=== PATIENT | male | born 1945 | race African-American/Black ===

== ENCOUNTER 2017-03-07 08:56 | Emergency (ER) | payer OTHER, MEDICARE ==
[2017-03-07] MEDS ORDERED: ONDANSETRON 4 MG/2 ML VIAL IVP STA (09:18)
[2017-03-07] MEDS ORDERED: SODIUM CHLORIDE 0.9% 1,000 ML IV STA ×2 (09:18)
[2017-03-07] MEDS ORDERED: FAMOTIDINE 20 MG/2 ML VIAL IV STA (09:19)
--- NOTE | 2017-03-07 09:20 | ED ---
General Adult HPI - General Chief complaint: Nausea/Vomiting/Diarrhea Stated complaint: ABDOMINAL PAIN X 4 DAYS Time Seen by Provider: 03/07/17 09:14 Source: patient, RN notes reviewed Mode of arrival: ambulatory Limitations: no limitations - History of Present Illness Initial comments: 71-year-old male who presents emergency room today with chief complaint of "possible food poisoning" 2 days. Patient does admit that he was fishing 4 days ago when he caught a fish and pulled out of the water and touch the physician then immediately grabbed meera cracker to eat. He states proximal May half an hour to an hour later started having some abdominal cramping. Patient does admit that he's felt nauseated and has had decreased appetite past 4 days. Does admit to a small amount of diarrhea. Does admit to some abdominal cramping on the right side of the abdomen. He denies any other complaints or symptoms. - Related Data Home Medications Medication Instructions Recorded Confirmed HYDROcodone/APAP 10-325MG [[place] 1 tab PO TID 03/07/17 03/07/17 10-325] Sennosides/Docusate Sodium 1 tab PO BID 03/07/17 03/07/17 [Docusate Sodium-Senna Tablet] Tamsulosin HCl [Flomax] 0.4 mg PO HS 03/07/17 03/07/17 amLODIPine [Norvasc] 5 mg PO DAILY 03/07/17 03/07/17 Previous Rx's Medication Instructions Recorded Ondansetron Odt [Zofran ODT] 4 mg PO Q8HR PRN #20 tab 03/07/17 Allergies Allergy/AdvReac Type Severity Reaction Status Date / Time No Known Allergies Allergy Verified 03/07/17 10:46 Review of Systems ROS Statement: Those systems with pertinent positive or pertinent negative responses have been documented in the HPI. ROS Other: All systems not noted in ROS Statement are negative. Past Medical History Past Medical History: Hypertension Additional Past Medical History / Comment(s): neck and back pain History of Any Multi-Drug Resistant Organisms: None Reported Past Surgical History: Joint Replacement, Orthopedic Surgery Additional Past Surgical History / Comment(s): neck Past Psychological History: No Psychological Hx Reported Smoking Status: Current every day smoker Past Alcohol Use History: None Reported Past Drug Use History: None Reported General Exam - General Exam Comments Initial Comments: General: The patient is awake and alert, in no distress, and does not appear acutely ill. Eye: Pupils are equal, round and reactive to light, extra-ocular movements are intact. No nystagmus. There is normal conjunctiva bilaterally. No signs of icterus. Ears, nose, mouth and throat: There are moist mucous membranes and no oral lesions. Neck: The neck is supple, there is no tenderness or JVD. Cardiovascular: There is a regular rate and rhythm. No murmur, rub or gallop is appreciated. Respiratory: Lungs are clear to auscultation, respirations are non-labored, breath sounds are equal. No wheezes, stridor, rales, or rhonchi. Gastrointestinal: Normal exam. Normal bowel sounds. Abdomen soft on palpation. Mild tenderness epigastric. No rebound tenderness. No guarding. No CVA tenderness. Musculoskeletal: Normal ROM, no tenderness. Strength 5/5. Sensation intact. Pulses equal bilaterally 2+. Neurological: A&O x 3. CN II-XII intact, There are no obvious motor or sensory deficits. Coordination appears grossly intact. Speech is normal. Skin: Skin is warm and dry and no rashes or lesions are noted. Psychiatric: Cooperative, appropriate mood & affect, normal judgment. Limitations: no limitations Course Vital Signs 03/07/17 09:01 Temperature 98.8 F Pulse Rate 82 Respiratory 20 Rate Blood Pressure 139/78 O2 Sat by Pulse 97 Oximetry Medical Decision Making - Medical Decision Making Patient reexamined at this time shows no signs of distress. Patient resting comfortably in the stretcher. He states he feels better and is ready to go. Patient denies any pain. Abdomen soft nontender. X-ray unremarkable. Labs been reviewed. Unable to get urine sample here the emergency room. Patient states he does not need to go. He denies any symptoms of dysuria. At this time patient will be discharged given Zofran for his symptoms. Advised follow- up family doctor return here to the emergency room if any symptoms increase or worsen or for any other concerns. - Lab Data Result diagrams: 03/07/17 09:45 03/07/17 09:45 Lab Results 03/07/17 03/07/17 Range/Units 09:45 09:45 WBC 7.2 (3.8-10.6) k/uL RBC 4.90 (4.30-5.90) m/uL Hgb 15.9 (13.0-17.5) gm/dL Hct 45.7 (39.0-53.0) % MCV 93.3 (80.0-100.0) fL MCH 32.5 (25.0-35.0) pg MCHC 34.9 (31.0-37.0) g/dL RDW 12.8 (11.5-15.5) % Plt Count 298 (150-450) k/uL Neutrophils % 54 % Lymphocytes % 35 % Monocytes % 8 % Eosinophils % 1 % Basophils % 0 % Neutrophils # 3.9 (1.3-7.7) k/uL Lymphocytes # 2.5 (1.0-4.8) k/uL Monocytes # 0.5 (0-1.0) k/uL Eosinophils # 0.1 (0-0.7) k/uL Basophils # 0.0 (0-0.2) k/uL Sodium 141 (137-145) mmol/L Potassium 3.9 (3.5-5.1) mmol/L Chloride 104 (98-107) mmol/L Carbon Dioxide 24 (22-30) mmol/L Anion Gap 13 mmol/L BUN 17 (9-20) mg/dL Creatinine 0.86 (0.66-1.25) mg/dL Est GFR (MDRD) Af Amer >60 (>60 ml/min/1.73 sqM) Est GFR (MDRD) Non-Af >60 (>60 ml/min/1.73 sqM) Glucose 111 H (74-99) mg/dL Calcium 9.4 (8.4-10.2) mg/dL Total Bilirubin 1.2 (0.2-1.3) mg/dL AST 30 (17-59) U/L ALT 35 (21-72) U/L Alkaline Phosphatase 75 (38-126) U/L Total Protein 8.0 (6.3-8.2) g/dL Albumin 4.4 (3.5-5.0) g/dL Amylase 50 (30-110) U/L Lipase 56 (23-300) U/L Disposition Clinical Impression: Nausea vomiting and diarrhea Disposition: HOME SELF-CARE Condition: Good Instructions: Acute Nausea and Vomiting (ED) Additional Instructions: Please use medication as discussed. Please follow-up with family doctor in the next 2 days of symptoms have not improved. Please return to emergency room if the symptoms increase or worsen or for any other concerns. Prescriptions: Ondansetron Odt [Zofran ODT] 4 mg PO Q8HR PRN #20 tab PRN Reason: Nausea Referrals: Jose J Brock DO [Primary Care Provider] - 1-2 days Time of Disposition: 11:14
[2017-03-07 10:02] LABS: Basophils % (A) 0 %; CH 32.5; Eosinophils # (A) 0.1 k/uL (0-0.7); Eosinophils % (A) 1 %; HCT 45.7 % (39.0-53.0); HDW 2.79; HGB 15.9 gm/dL (13.0-17.5); Luc # (Auto) 0.15; Luc % (Auto) 2; Lymphocytes # (A) 2.5 k/uL (1.0-4.8); Lymphocytes % (A) 35 %; MCH 32.5 pg (25.0-35.0); MCHC 34.9 g/dL (31.0-37.0); MCV 93.3 fL (80.0-100.0); Mean Platelet Volume 6.5; Monocytes # (A) 0.5 k/uL (0-1.0); Monocytes % (A) 8 %; Neutrophils # (A) 3.9 k/uL (1.3-7.7); Neutrophils % (A) 54 %; RDW 12.8 % (11.5-15.5); WBC 7.2 k/uL (3.8-10.6); WBC (Perox) 7.03
[2017-03-07 10:15] LABS: ALT 35 U/L (21-72); AST 30 U/L (17-59); Alkaline Phosphatase 75 U/L (38-126); Amylase 50 U/L (30-110); Anion Gap 13 mmol/L; Blood Urea Nitrogen 17 mg/dL (9-20); Calcium 9.4 mg/dL (8.4-10.2); Carbon Dioxide 24 mmol/L (22-30); Chloride 104 mmol/L (98-107); Glucose 111 mg/dL (74-99); Non-African American GFR(MDRD) >60 (>60 ml/min/1.73 sqM); Potassium 3.9 mmol/L (3.5-5.1); Sodium 141 mmol/L (137-145); Total Bilirubin 1.2 mg/dL (0.2-1.3)
--- NOTE | 2017-03-07 11:17 | XR ---
EXAMINATION TYPE: XR KUB DATE OF EXAM: 03/07/2017 10:48 AM CLINICAL HISTORY: Mid abdominal pain and nausea for 4 days. TECHNIQUE: 2 upright KUB images of the abdomen are obtained. COMPARISON: None. FINDINGS: Scattered gas is seen in non-distended stomach and small bowel loops. Gas and fecal mater ial is seen in non-distended colon. No pneumoperitoneum is identified. Multilevel spurring in the spi ne is seen. Lung bases are clear. IMPRESSION: Overall nonobstructive bowel gas pattern.
[2017-03-07 11:41] VITALS: BP 124/65; PULSE 68; RESP 18; TEMP 98.1
== END 2017-03-07 11:41 | disposition home or self-care (01) ==
LOC: EC 08:56 → SUPCPDRO 08:56 → EC 11:41
DX: R11.2 Nausea with vomiting, unspecified (principal); R19.7 Diarrhea, unspecified; I10 Essential (primary) hypertension; F17.200 Nicotine dependence, unspecified, uncomplicated; Z79.891 Long term (current) use of opiate analgesic; Z79.899 Other long term (current) drug therapy; Z87.39 Personal history of other diseases of the musculoskeletal system and connective tissue
CPT/HCPCS: 36415; 80053; 82150; 83690; 85025; 74000; 99284; 96374; 96375; 96361 ×2; J2405

== ENCOUNTER → 2017-04-01 | Outpatient (CLI) | payer OTHER ==
--- NOTE | 2017-04-01 11:12 | US ---
EXAMINATION TYPE: US liver DATE OF EXAM: 04/01/2017 COMPARISON: NONE CLINICAL HISTORY: B18.2 CHR VIRAL HEPATITIS. HEPATITIS X 4 YRS. EXAM MEASUREMENTS: Liver Length: 19.7 cm Gallbladder Wall: 0.12 cm CBD: 0.28 cm Right Kidney: 11.2 X 5.1 X 3.9 cm Pancreas: Obscured by bowel gas Liver: Diffusely coarsened echo pattern Gallbladder: wnl Evidence for sonographic Moore's sign: No CBD: wnl Right Kidney: DENSE AREA FOCUS SEEN INFERIOR POLE NO SHADOWING NOTED.l IMPRESSION: 1. There is a dense echogenic area involving the lower pole of the right kidney. This could represent a nonobstructing calculus or possibly tiny lipoma or angiomyolipoma and could be correlated with CT scan if clinically warranted. 2. Liver is somewhat coarsened echo pattern correlate for hepatocellular disease or hepatitis. Correl ate with serum hepatic studies.
== END | disposition home or self-care (01) ==
LOC: RADUSWWP 10:11
PROVIDERS: ATTEND Family Medicine
DX: B18.2 Chronic viral hepatitis C (principal)
CPT/HCPCS: 76705

== ENCOUNTER 2018-04-12 12:51 | Emergency (ER) | payer OTHER ==
[2018-04-12 13:07] VITALS: BP 121/73; PULSE 67; RESP 18; TEMP 98
[2018-04-12] MEDS ORDERED: DIPH,PERTUS(ACELL)TETVAC-LF 0.5 ML VIAL IM ONE (13:18)
--- NOTE | 2018-04-12 13:42 | ED ---
General Adult HPI - General Chief complaint: Wound/Laceration Stated complaint: Left Hand Laceration Time Seen by Provider: 04/12/18 13:14 Source: patient, family, RN notes reviewed Mode of arrival: wheelchair Limitations: no limitations - History of Present Illness Initial comments: 72-year-old male presents to the emergency department for a chief complaint of laceration to the palmar left third finger. Patient states he fell onto his left hand about one hour ago. Patient states he thinks his ring lacerated his finger. Patient denies pain in the hand besides the laceration site. Patient did not hit his head or sustain any other injuries. Patient states he can move his finger without difficulty. Patient states his tetanus is not up-to- date.Patient has no other complaints at this time including shortness of breath , chest pain, abdominal pain, nausea or vomiting, headache, or visual changes. - Related Data Home Medications Medication Instructions Recorded Confirmed HYDROcodone/APAP 10-325MG [[place] 1 tab PO TID 03/07/17 04/12/18 10-325] Sennosides/Docusate Sodium 1 tab PO BID 03/07/17 04/12/18 [Docusate Sodium-Senna Tablet] Tamsulosin HCl [Flomax] 0.4 mg PO HS 03/07/17 04/12/18 amLODIPine [Norvasc] 5 mg PO DAILY 03/07/17 04/12/18 Previous Rx's Medication Instructions Recorded Ondansetron Odt [Zofran ODT] 4 mg PO Q8HR PRN #20 tab 03/07/17 Allergies Allergy/AdvReac Type Severity Reaction Status Date / Time No Known Allergies Allergy Verified 04/12/18 13:07 Review of Systems ROS Statement: Those systems with pertinent positive or pertinent negative responses have been documented in the HPI. ROS Other: All systems not noted in ROS Statement are negative. Past Medical History Past Medical History: Hypertension Additional Past Medical History / Comment(s): neck and back pain History of Any Multi-Drug Resistant Organisms: None Reported Past Surgical History: Joint Replacement, Orthopedic Surgery Additional Past Surgical History / Comment(s): neck Past Psychological History: No Psychological Hx Reported Smoking Status: Current every day smoker Past Alcohol Use History: None Reported Past Drug Use History: None Reported General Exam Limitations: no limitations General appearance: alert, in no apparent distress Head exam: Present: atraumatic, normocephalic, normal inspection Eye exam: Present: normal appearance ENT exam: Present: normal exam, mucous membranes moist, normal external ear exam Neck exam: Present: normal inspection, full ROM. Absent: tenderness, meningismus, lymphadenopathy Respiratory exam: Present: normal lung sounds bilaterally. Absent: respiratory distress, wheezes, rales, rhonchi, stridor Cardiovascular Exam: Present: regular rate, normal rhythm, normal heart sounds. Absent: systolic murmur, diastolic murmur, rubs, gallop, clicks Extremities exam: Present: full ROM (Full range of motion of the left hand including flexion and extension in the MCP, PIP, DIP joints of the left third digit.), tenderness (Tenderness around laceration site. There is some tenderness in the left third finger as well. No hand or scaphoid tenderness.), normal capillary refill (Capillary refill less than 2 seconds and radial pulse 2 + in the left upper extremity), joint swelling (Mild swelling to the proximal phalanx of the left third digit), other (There is a 1.5 cm laceration to the palmar aspect of the proximal phalanx left third finger. No foreign bodies. All deep structures intact. No signs of infection or spreading redness.) Course Vital Signs 04/12/18 13:05 Temperature 98 F Pulse Rate 67 Respiratory 18 Rate Blood Pressure 121/73 O2 Sat by Pulse 97 Oximetry Procedures - Procedures Initial comment: Body area: Palmar aspect proximal phalanx of left third finger Laceration length: 1.5 cm Foreign bodies: no foreign bodies Tendon involvement: none Nerve involvement: none Vascular damage: no Anesthesia: local infiltration Local anesthetic: 2 mL 1% lidocaine Preparation: Patient was prepped and draped in the usual sterile fashion. Irrigation solution: Sterile water, iodine Irrigation method:sterile water jet lavage Skin closure: 5-0 Ethilon using sterile technique Number of sutures: 5 Technique: interupted Dressing: antibiotic ointment/ gauze Patient tolerance: Patient tolerated the procedure well with no immediate complications. Medical Decision Making - Medical Decision Making 72-year-old male presents to the emergency department for a chief complaint of laceration to the left third finger one hour ago. Patient fell and thinks he cut it with his ring. Ring is currently removed and there are no rings on the left hand. No other injuries were sustained. Tetanus was in the emergency department. There is mild swelling of the proximal phalanx of the left third digit. Laceration appears about 1.5 cm. No foreign bodies. Patient has full range of motion of the third digit. No tenderness in the hand or wrist including scaphoid. X-ray shows no acute fractures, dislocations, or foreign bodies. Laceration was cleaned thoroughly and sutured with 5 sutures. Patient will return in 7-10 days to have sutures removed. He was educated not to submerge the hand for 24-48 hours. He was educated on return precautions including those for infection. He will follow up with primary care in 1-2 days. Disposition Clinical Impression: Laceration Disposition: HOME SELF-CARE Condition: Good Instructions: Care For Your Stitches (ED), Laceration (ED) Additional Instructions: Motrin or Tylenol for pain. Please monitor for signs of infection such as spreading redness, streaking redness, drainage or fever and return if these occur. Return in 7-10 days to have stitches removed. Follow up with primary care in 1-2 days. Is patient prescribed a controlled substance at d/c from ED?: No Referrals: [facility]inic [Primary Care Provider] - 1-2 days Time of Disposition: 14:29
--- NOTE | 2018-04-12 14:05 | XR ---
EXAMINATION TYPE: XR hand complete LT DATE OF EXAM: 04/12/2018 COMPARISON: NONE HISTORY: 72-year-old male with fall, middle digit pain and swelling TECHNIQUE: 3 views FINDINGS: Mild scattered osteoarthritic spurring at the DIP joints and at the base of thumb. No acute fracture, subluxation, or dislocation is seen. IMPRESSION: Scattered mild osteoarthritic changes. No acute osseous abnormality seen.
== END 2018-04-12 14:36 | disposition home or self-care (01) ==
LOC: EC 12:51
DX: S61.213A Laceration without foreign body of left middle finger without damage to nail, initial encounter (principal); I10 Essential (primary) hypertension; F17.200 Nicotine dependence, unspecified, uncomplicated; Z23 Encounter for immunization; Z79.891 Long term (current) use of opiate analgesic; Z79.899 Other long term (current) drug therapy; W01.0XXA Fall on same level from slipping, tripping and stumbling without subsequent striking against object, initial encounter; Y92.003 Bedroom of unspecified non-institutional (private) residence as the place of occurrence of the external cause
CPT/HCPCS: 12001; 90471; 90715; 99283

== ENCOUNTER 2018-04-17 13:13 | Inpatient (IN) | payer MEDICARE, OTHER ==
--- NOTE | 2018-04-17 13:22 | ED ---
General Adult HPI - General Chief complaint: Weakness Stated complaint: Left Sided Weakness Time Seen by Provider: 04/17/18 13:14 Source: patient, EMS, RN notes reviewed, old records reviewed Mode of arrival: EMS Limitations: physical limitation - History of Present Illness Initial comments: This is a 72-year-old male the ER for evaluation. Patient does say for evaluation regarding significant left-sided weakness. Inability to ambulate. History of spinal surgery history of neck surgery. History of degenerative disc disease - Related Data Home Medications Medication Instructions Recorded Confirmed HYDROcodone/APAP 10-325MG [[place] 1 tab PO TID 03/07/17 04/17/18 10-325] Sennosides/Docusate Sodium 1 tab PO BID 03/07/17 04/17/18 [Docusate Sodium-Senna Tablet] Tamsulosin HCl [Flomax] 0.4 mg PO HS 03/07/17 04/17/18 amLODIPine [Norvasc] 5 mg PO DAILY 03/07/17 04/17/18 Allergies Allergy/AdvReac Type Severity Reaction Status Date / Time No Known Allergies Allergy Verified 04/17/18 13:27 Review of Systems ROS Statement: Those systems with pertinent positive or pertinent negative responses have been documented in the HPI. ROS Other: All systems not noted in ROS Statement are negative. Past Medical History Past Medical History: Hypertension Additional Past Medical History / Comment(s): neck and back pain History of Any Multi-Drug Resistant Organisms: None Reported Past Surgical History: Joint Replacement, Orthopedic Surgery Additional Past Surgical History / Comment(s): neck Past Psychological History: No Psychological Hx Reported Smoking Status: Current every day smoker Past Alcohol Use History: None Reported Past Drug Use History: None Reported General Exam - General Exam Comments Initial Comments: Significant left-sided weakness and left-sided foot drop Limitations: physical limitation General appearance: alert, in no apparent distress Head exam: Present: atraumatic, normocephalic, normal inspection Eye exam: Present: normal appearance, PERRL, EOMI. Absent: scleral icterus, conjunctival injection, periorbital swelling ENT exam: Present: normal exam, mucous membranes moist Neck exam: Present: normal inspection. Absent: tenderness, meningismus, lymphadenopathy Respiratory exam: Present: normal lung sounds bilaterally. Absent: respiratory distress, wheezes, rales, rhonchi, stridor Cardiovascular Exam: Present: regular rate, normal rhythm, normal heart sounds. Absent: systolic murmur, diastolic murmur, rubs, gallop, clicks GI/Abdominal exam: Present: soft, normal bowel sounds. Absent: distended, tenderness, guarding, rebound, rigid Extremities exam: Present: normal inspection, full ROM, normal capillary refill. Absent: tenderness, pedal edema, joint swelling, calf tenderness Back exam: Present: normal inspection Neurological exam: Present: alert, oriented X3, CN II-XII intact Psychiatric exam: Present: normal affect, normal mood Skin exam: Present: warm, dry, intact, normal color. Absent: rash Course Vital Signs 04/17/18 13:14 Temperature 98.4 F Pulse Rate 65 Respiratory 16 Rate Blood Pressure 134/69 O2 Sat by Pulse 98 Oximetry - Reevaluation(s) Reevaluation #1: 04/17/18 14:16 patient w inability to ambulate Medical Decision Making - Medical Decision Making 72 male the ER for evaluation. Patient with significant weakness, patient is scheduled for outpatient MRI, Anusha states patient is continues to keep getting weaker, now decreased ability to amylase secondary significant left-sided. History of degenerative disc disease. We'll observe patient obtain MRI Disposition Clinical Impression: Left foot drop Disposition: ADMITTED IP TO THIS HOSP Condition: Fair Is patient prescribed a controlled substance at d/c from ED?: No Referrals: [facility],Clinic [Primary Care Provider] - 1-2 days
[2018-04-17] MEDS ORDERED: SODIUM CHLORIDE 0.9% 1,000 ML IV STA (13:49)
[2018-04-17 14:09] LABS: Basophils % (A) 1 %; Eosinophils # (A) 0.3 k/uL (0-0.7); Eosinophils % (A) 5 %; HCT 43.7 % (39.0-53.0); HGB 14.6 gm/dL (13.0-17.5); Lymphocytes # (A) 2.4 k/uL (1.0-4.8); Lymphocytes % (A) 36 %; MCH 31.2 pg (25.0-35.0); MCHC 33.4 g/dL (31.0-37.0); MCV 93.3 fL (80.0-100.0); Mean Platelet Volume 6.3; Monocytes # (A) 0.4 k/uL (0-1.0); Monocytes % (A) 5 %; Neutrophils # (A) 3.5 k/uL (1.3-7.7); Neutrophils % (A) 52 %; Platelet Count 318 k/uL (150-450); RBC 4.68 m/uL (4.30-5.90); RDW 12.7 % (11.5-15.5); WBC 6.8 k/uL (3.8-10.6)
[2018-04-17 14:20] LABS: ALT 32 U/L (21-72); AST 25 U/L (17-59); Alkaline Phosphatase 70 U/L (38-126); Anion Gap 11 mmol/L; Blood Urea Nitrogen 12 mg/dL (9-20); Calcium 9.5 mg/dL (8.4-10.2); Carbon Dioxide 26 mmol/L (22-30); Chloride 104 mmol/L (98-107); Glucose 118 mg/dL (74-99); Phosphorus 3.9 mg/dL (2.5-4.5); Potassium 4.1 mmol/L (3.5-5.1); Sodium 141 mmol/L (137-145); Total Bilirubin 0.6 mg/dL (0.2-1.3); Total Protein 6.8 g/dL (6.3-8.2)
[2018-04-17 14:24] LABS: INR 1.1 (<1.2); Partial Thromboplastin Time 25.1 sec (22.0-30.0); Prothrombin Time 10.6 sec (9.0-12.0)
[2018-04-17 14:29] LABS: Creatine Kinase 37 U/L (55-170)
[2018-04-17 14:42] LABS: Creatine Kinase MB <0.2 ng/mL (0.0-2.4); Troponin I <0.012 ng/mL (0.000-0.034)
[2018-04-17 16:39] LABS: Appearance,Urine Clear (Clear); Bilirubin,Urine Negative (Negative); Blood,Urine Negative (Negative); Color,Urine Yellow; Glucose,Urine (UA) Negative (Negative); Ketones,Urine Negative (Negative); Leukocyte Esterase,Urine Negative (Negative); Nitrite,Urine Negative (Negative); PH, Urine 5.5 (5.0-8.0); Protein,Urine Trace (Negative); Specific Gravity,Urine 1.023 (1.001-1.035)
--- NOTE | 2018-04-17 17:51 | P.HPIM ---
History of Present Illness This is a pleasant 72 years old male with past medical history of hypertension, neck and back pain, Joint replacement, history of cervical stenosis S/P orthopedic surgery, current every day smoker. He presents because of progressive weakness of his left leg and left upper extremity over 3 weeks duration not associated with headache. No slurred speech no blurry vision. No urine or bowel incontinence. No headache. No neck pain or back pain. Patient went to his physicians recommended MRI of the lower back and send him for orthopedic referral. However patient didn't have a chance to do the MRI and he kept getting worse gradually. As per at bedside 3 weeks ago noticed that her to stop doing his usual daily activity. 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 Patient and reports he fell twice about 1.5 and one week ago. One time once he was going upstairs and the second time he tripped in his bedroom. Over the last few weeks he starts using a cane later on a walker and later on the wheelchair on the day of admission. Patient uses Norvasc at home for blood pressure, and [place] for chronic neck and back pain however for long time pain is controlled and he is on [place] 3 times a day. Today as well as over the last 3 weeks patient denies any neck or back pain. No urine or bowel incontinence. No sensory level. No chest pain. No dyspnea. No palpitation. No change in urine or bowel habits. No fever . In the ED his blood test of CBC, BMP, and coagulation studies were unremarkable. His UA was unremarkable. EKG shows sinus bradycardia at 55 BPM, QTC 401. No significant ST-T changes. With first- degree AV block. Patient is not on beta rod Review of Systems CONSTITUTIONAL: No fever, no malaise, no fatigue. HEENT: No recent visual problems or hearing problems. Denied any sore throat. CARDIOVASCULAR: No orthopnea, PND, no palpitations, no syncope. PULMONARY: No shortness of breath, no cough, no hemoptysis. GASTROINTESTINAL: No diarrhea, no nausea, no vomiting, no abdominal pain. Normoactive bowel sounds. NEUROLOGICAL: No headaches,, no numbness. No suspicion. No blurred vision HEMATOLOGICAL: Denies any bleeding or petechiae. GENITOURINARY: Denies any burning micturition, frequency, or urgency. MUSCULOSKELETAL/RHEUMATOLOGICAL: Denies any joint pain, swelling, or any muscle pain. ENDOCRINE: Denies any polyuria or polydipsia. Past Medical History Past Medical History: Hypertension Additional Past Medical History / Comment(s): neck and back pain History of Any Multi-Drug Resistant Organisms: None Reported Past Surgical History: Joint Replacement, Orthopedic Surgery Additional Past Surgical History / Comment(s): neck Past Psychological History: No Psychological Hx Reported Smoking Status: Current every day smoker Past Alcohol Use History: None Reported Past Drug Use History: None Reported Medications and Allergies Home Medications Medication Instructions Recorded Confirmed Type HYDROcodone/APAP 10-325MG [[place] 1 tab PO TID 03/07/17 04/17/18 History 10-325] Sennosides/Docusate Sodium 1 tab PO BID 03/07/17 04/17/18 History [Docusate Sodium-Senna Tablet] Tamsulosin HCl [Flomax] 0.4 mg PO HS 03/07/17 04/17/18 History amLODIPine [Norvasc] 5 mg PO DAILY 03/07/17 04/17/18 History Allergies Allergy/AdvReac Type Severity Reaction Status Date / Time No Known Allergies Allergy Verified 04/17/18 13:27 Physical Exam Vitals: Vital Signs Temp Pulse Resp BP Pulse Ox 04/17/18 15:35 74 16 136/79 98 04/17/18 14:31 60 16 134/69 97 04/17/18 13:14 98.4 F 65 16 134/69 98 Intake and Output 04/17/18 04/17/18 04/17/18 06:59 14:59 22:59 Other: Weight 98.883 kg GENERAL: The patient is alert and oriented x3, not in any acute distress. Well developed, well nourished. HEENT: Pupils are round and equally reacting to light. EOMI. No scleral icterus. No conjunctival pallor. Normocephalic, atraumatic. No pharyngeal erythema. No thyromegaly. CARDIOVASCULAR: S1 and S2 present. No murmurs, rubs, or gallops. PULMONARY: Chest is clear to auscultation, no wheezing or crackles. ABDOMEN: Soft, nontender, nondistended, normoactive bowel sounds. No palpable organomegaly. MUSCULOSKELETAL: No joint swelling or deformity. EXTREMITIES: No cyanosis, clubbing, or pedal edema. NEUROLOGICAL: Cranial nerves are grossly intact. Weakness of the left upper extremity and left lower extremity.week left hand telemarketer. can bend his left leg half-way compared to the right side. Absent meningeal signs. Pupils are equal and reactive to light SKIN: No rashes. Results CBC & Chem 7: 04/17/18 13:49 04/17/18 13:49 Labs: Abnormal Lab Results - Last 24 Hours (Table) 04/17/18 04/17/18 04/17/18 Range/Units 13:49 13:49 16:22 Glucose 118 H (74-99) mg/dL Total Creatine Kinase 37 L (55-170) U/L Urine Protein Trace H (Negative) Assessment and Plan Assessment: -Progressive weakness of the left upper and lower extremity. Possible stroke -Sinus bradycardia, with first-degree AV block on EKG -Hypertension -History of chronic neck and back pain status post neck surgery about 5 years ago. Currently is pain-free Plan: This is a 72 -[place] gentleman from the [facility], who presents because of 3 weeks progressive left upper and lower extremity weakness. We'll continue with the same treatment. We'll continue with symptomatic treatment. We'll do a CAT scan of the head. If is negative we will consider starting aspirin. Continue with neuro check. Call neurologist consult. Admit him to telemetry. Check lipid panel and hemoglobin A1c. We'll check an echo and ask cardiology consultation too. Patient is counseled about quit smoking and he agrees. Continue with nicotine patch. GI and DVT prophylaxis. Consult physical therapy and occupational therapy. Further recommendation based on the clinical course and the outcome of the workup. Prognosis is guarded Time with Patient: Greater than 30
--- NOTE | 2018-04-17 18:11 | CT ---
EXAMINATION TYPE: CT brain alan gomez DATE OF EXAM: 04/17/2018 COMPARISON: NONE HISTORY: Left leg and arm numbness x3 weeks. CT DLP: 1510 mGycm Automated exposure control for dose reduction was used. TECHNIQUE: CT scan of the head and cervical spine are performed without contrast. FINDINGS: There is a 5 cm area of poorly marginated edema in the right parietal lobe palomino and white matter. There is also a second focus of edema that measures 5 x 3 cm in the right thalamus and inter nal capsule. There is 15 mm area of increased density at the anterior aspect of the third ventricle c onsistent with a mass. There is no hydrocephalus. There is 4 cm area of white matter and palomino matter hypodensity in the left cerebellar hemisphere consistent with edema. There is no evidence of intracra nial hemorrhage. The calvarium is intact. There is anterior and posterior fusion surgery in the cervical spine at C3-4. Vertebra have normal al ignment. There is narrowing of disc spaces from C3 to T1. There is no compression fracture. Skull bas e is intact. I see no focal bony destructive process. There is spurring of the endplates. There is en dplate spur formation with some relative spinal stenosis from C4 to C6. Impression Spondylotic changes in the cervical spine. No fracture. Multiple areas of cerebral edema. Mass in the anterior right thalamus. Findings are consistent with m etastatic disease.
[2018-04-17 20:20] LABS: INR 1.1 (<1.2); Prothrombin Time 10.8 sec (9.0-12.0)
[2018-04-17] MEDS: TAMSULOSIN 0.4 MG CAP.ER.24H PO SCH (21:52)
[2018-04-17] MEDS: HYDROcodone/APAP 10-325MG 1 EACH TAB PO PRN (21:52)
[2018-04-18 07:07] LABS: INR 1.1 (<1.2); Partial Thromboplastin Time 24.9 sec (22.0-30.0); Prothrombin Time 10.6 sec (9.0-12.0)
[2018-04-18 07:15] LABS: ALT 34 U/L (21-72); AST 20 U/L (17-59); Albumin 3.5 g/dL (3.5-5.0); Alkaline Phosphatase 70 U/L (38-126); Anion Gap 10 mmol/L; Blood Urea Nitrogen 11 mg/dL (9-20); Carbon Dioxide 28 mmol/L (22-30); Chloride 100 mmol/L (98-107); Cholesterol 130 mg/dL (<200); Glucose 105 mg/dL (74-99); HDL Cholesterol 24 mg/dL (40-60); LDL Cholesterol,Calculated 82 mg/dL (0-99); Potassium 4.1 mmol/L (3.5-5.1); Sodium 138 mmol/L (137-145); Total Bilirubin 0.4 mg/dL (0.2-1.3); Total Protein 6.1 g/dL (6.3-8.2); Triglycerides 122 mg/dL (<150)
[2018-04-18] MEDS ORDERED: amLODIPine 5 MG TAB PO SCH (09:00)
[2018-04-18] MEDS: SENNOSIDES-DOCUSATE SODIUM 1 EACH TAB PO SCH ×2 (09:08→21:26)
[2018-04-18] MEDS: HYDROcodone/APAP 10-325MG 1 EACH TAB PO PRN (09:12)
--- NOTE | 2018-04-18 10:58 | CONS ---
CONSULTATION CHIEF COMPLAINT: Bradycardia. This is a 72-year-old gentleman with history of hypertension and history of cervical stenosis status post surgery, chronic neck and back pain, who presented to hospital with progressive weakness of the left leg and left upper extremity of about 3 weeks duration. The left leg weakness has worsened more over the last 1 to 2 days, hence he comes in. Cardiology has been consulted because of bradycardia. His EKG shows sinus bradycardia without significant ST-T wave changes. PAST MEDICAL HISTORY: Significant for hypertension. MEDICATIONS: Medications at home include Norvasc 5 mg daily, Flomax, [place]. ALLERGIES: There are no known drug allergies. FAMILY HISTORY: Negative for premature coronary artery disease. SOCIAL HISTORY: Significant for smoking. There is no history of EtOH abuse or drug abuse. REVIEW OF SYSTEMS: HEENT is significant for neck pain. CARDIAC: As described above. RESPIRATORY: Negative. GI: Negative. GENITOURINARY: Negative. ALLERGY/IMMUNOLOGY: Negative. SKIN: Negative. MUSCULOSKELETAL: Significant for arthritis. PSYCHOSOCIAL: Negative. ENDOCRINE: Negative. HEMATOLOGICAL: Negative. DERM: Negative. CONSTITUTIONAL: Negative. ONCOLOGICAL: Negative. Rest of the systems review is not relevant. PHYSICAL EXAMINATION: On exam, patient is comfortable at rest. Heart rate is 60 beats per minute. Blood pressure is 140/60, respiratory rate is 18, O2 sat is 95% on room air. There is no jugular venous distention. Carotid upstroke is normal. There is no bruit. Chest exam reveals good air entry bilaterally. Heart exam reveals first and second heart sounds. No gallop. Abdomen is soft. Examination of extremities did not reveal any edema. Peripheral pulses are felt. LABS: Labs show an LDL cholesterol of 82. Troponin is negative. EKG shows sinus bradycardia. Echocardiogram has been done and results are pending. CT scan of the head and cervical spine shows cerebral edema with mass in the right anterior thalamic region consistent with metastatic disease. CONCLUSIONS: 1. Asymptomatic sinus bradycardia could be physiological or could be related to the cerebral edema. 2. Hypertension. PLAN: The patient does not have symptomatic bradycardia. Cerebral edema management as per primary. We will review the echo results, but we really do not have anything further to offer at this time. We are going to see the patient on an as-needed basis. Thank you for allowing us to participate in the care of this pleasant gentleman. MMODL / IJN: [id number] /
--- NOTE | 2018-04-18 11:48 | ECHOF ---
Referral Reason:Bradycardia, stroke MEASUREMENTS -------- HEIGHT: 180.3 cm WEIGHT: 99.3 kg BP: 138/77 IVSd: 1.1 cm (0.6 - 1.1) LVIDd: 4.5 cm (3.9 - 5.3) LVPWd: 1.2 cm (0.6 - 1.1) IVSs: 1.7 cm LVIDs: 3.1 cm LVPWs: 1.6 cm Ao Diam: 3.5 cm (2.0 - 3.7) AV Cusp: 2.3 cm (1.5 - 2.6) LA Diam: 3.5 cm (2.7 - 3.8) MV EXCURSION: 14.577 mm (> 18.000) MV EF SLOPE: 51 mm/s (70 - 150) EPSS: 0.9 cm MV E Daniel: 0.59 m/s MV DecT: 367 ms MV A Daniel: 0.78 m/s MV E/A Ratio: 0.75 AR PHT: 340 ms RAP: 5.00 mmHg RVSP: 8.53 mmHg FINDINGS -------- Sinus rhythm. This was a technically good study. The left ventricular size is normal. There is mild concentric left ventricular hypertrophy. Overa ll left ventricular systolic function is normal with, an EF between 55 - 60 %. The right ventricle is normal in size and function. The left atrium is normal in size. The right atrium is normal in size. The aortic valve is trileaflet, and appears structurally normal. No aortic stenosis or regurgitation. Trace amount of aortic regurgitation. The mitral valve leaflets are mildly thickened. There is trace mitral regurgitation. Trace tricuspid regurgitation present. The right ventricular systolic pressure, as measured by Dopp ler, is 8.53mmHg. Pulmonic valve appears structurally normal. The aortic root size is normal. Normal inferior vena cava with normal inspiratory collapse consistent with estimated right atrial pre ssure of 5 mmHg. The pericardium is normal. CONCLUSIONS -------- 1. Sinus rhythm. 2. This was a technically good study. 3. The left ventricular size is normal. 4. There is mild concentric left ventricular hypertrophy. 5. Overall left ventricular systolic function is normal with, an EF between 55 - 60 %. 6. The right ventricle is normal in size and function. 7. The left atrium is normal in size. 8. The right atrium is normal in size. 9. The aortic valve is trileaflet, and appears structurally normal. No aortic stenosis or regurgitati on. 10. Trace amount of aortic regurgitation. 11. The mitral valve leaflets are mildly thickened. 12. There is trace mitral regurgitation. 13. Trace tricuspid regurgitation present. 14. The right ventricular systolic pressure, as measured by Doppler, is 8.53mmHg. 15. Pulmonic valve appears structurally normal. 16. The aortic root size is normal. 17. Normal inferior vena cava with normal inspiratory collapse consistent with estimated right atrial pressure of 5 mmHg. 18. The pericardium is normal. TOBACCO WRAPPING MACHINE TENDER: Shasta Issa RDCS
--- NOTE | 2018-04-18 13:36 | P.PN ---
Progress Note - Text Progress Note Date: 04/18/18 This is an addendum to the cardiology consultation dictated. Patient did have an echocardiogram with Doppler study performed today which revealed a normal ejection fraction, 55-60%. DNP note has been reviewed, I agree with a documented findings and plan of care. Patient was seen and examined.
[2018-04-18] MEDS ORDERED: NICOTINE 14MG/24HR PATCH TRANSDERM SCH (16:00)
[2018-04-18] MEDS ORDERED: DEXAMETHASONE SOD PHOSPHATE 10 MG/ML 1 ML VIAL IV SCH (16:00)
[2018-04-18 16:32] LABS: Hemoglobin A1C 5.1 % (4.0-6.0)
--- NOTE | 2018-04-18 16:37 | P.CONS ---
History of Present Illness - Reason for Consult Consult date: 04/18/18 Possible brain metastasis - History of Present Illness The patient is a 72-year-old -[place] male, apparently in good health at baseline. Over the past 3 weeks, he had noted some increasing weakness in his left upper and lower extremity. The onset was fairly gradual. There was no associated headache, visual complaints, difficulty in speaking or swallowing. His noted that the patient had become slowly less active. He also had 2-3 falls. He started using a cane and subsequently progressed to needing a walker and then a wheelchair because of progressive weakness. He was therefore brought into the emergency room. He had a computed tomography scan of the brain done without contrast, that showed evidence of a 4 cm area of edema in the right parietal area, at least 2 other areas of edema on the right, including a 5 x 3 cm area in the right internal capsule and thalamus and a 1.5 cm area involving the third ventricle, as well as a 4 cm area of edema in the left cerebellum. The clinical picture was highly suspicious for underlying mass lesions causing vasogenic edema. The patient was therefore admitted, and consult placed for further evaluation and recommendations. He denies any prior history of malignancy. There is a long-standing history of smoking. Review of Systems Constitutional: Reports weakness Eyes: denies blurred vision, denies pain Ears: deny: decreased hearing, ear discharge, earache, tinnitus Ears, nose, mouth and throat: Denies headache, Denies sore throat Cardiovascular: Denies chest pain, Denies shortness of breath Respiratory: Denies cough Gastrointestinal: Denies abdominal pain, Denies diarrhea, Denies nausea, Denies vomiting Genitourinary: Reports as per HPI (No specific complaints) Musculoskeletal: Reports muscle weakness Integumentary: Denies pruritus, Denies rash Neurological: Reports balance difficulties, Reports motor disturbance (Left upper and lower extremity weakness) Psychiatric: Denies anxiety, Denies depression Endocrine: Denies fatigue, Denies weight change Hematologic/Lymphatic: Reports as per HPI Past Medical History Past Medical History: Hypertension Additional Past Medical History / Comment(s): neck and back pain History of Any Multi-Drug Resistant Organisms: None Reported Past Surgical History: Joint Replacement, Orthopedic Surgery Additional Past Surgical History / Comment(s): neck Past Anesthesia/Blood Transfusion Reactions: No Reported Reaction Smoking Status: Current every day smoker - Past Family History Mother Additional Family Medical History / Comment(s): etoh Brother(s) Additional Family Medical History / Comment(s): etoh Father History Unknown: Yes Medications and Allergies Home Medications Medication Instructions Recorded Confirmed Type HYDROcodone/APAP 10-325MG [[place] 1 tab PO TID 03/07/17 04/17/18 History 10-325] Sennosides/Docusate Sodium 1 tab PO BID 03/07/17 04/17/18 History [Docusate Sodium-Senna Tablet] Tamsulosin HCl [Flomax] 0.4 mg PO HS 03/07/17 04/17/18 History amLODIPine [Norvasc] 5 mg PO DAILY 03/07/17 04/17/18 History Allergies Allergy/AdvReac Type Severity Reaction Status Date / Time No Known Allergies Allergy Verified 04/17/18 13:27 Physical Exam Vitals: Vital Signs Temp Pulse Pulse Resp BP BP Pulse Ox 04/18/18 11:30 97.9 F 56 L 18 131/71 97 04/18/18 08:49 95 04/18/18 08:00 97.5 F L 63 18 141/65 97 04/18/18 04:10 98.8 F 52 L 18 138/77 95 04/18/18 00:10 98.3 F 57 L 18 164/82 96 04/17/18 20:10 98.4 F 66 17 171/82 98 04/17/18 19:17 97.9 F 78 16 142/78 98 04/17/18 17:55 98.7 F 54 L 47 H 149/72 100 Intake and Output 04/18/18 04/18/18 04/18/18 06:59 14:59 22:59 Intake Total 473 Output Total 400 300 Balance -400 173 Intake: Oral 473 Output: Urine 400 300 Other: Voiding Method Urinal Urinal # Voids 3 Weight 99.5 kg - Constitutional General appearance: no acute distress - EENT Eyes: EOMI, PERRLA ENT: hearing grossly normal, normal oropharynx - Neck Neck: no lymphadenopathy Thyroid: bilateral: normal size - Respiratory Respiratory: bilateral: CTA - Cardiovascular Rhythm: regular Heart sounds: normal: S1, S2 - Gastrointestinal General gastrointestinal: normal bowel sounds, soft - Integumentary Integumentary: normal - Neurologic Neurologic: CNII-XII intact, focal deficits (Left upper extremity strength about 3/5, left lower extremity strength 3/5 proximal and distal) - Musculoskeletal Musculoskeletal: left sided weakness - Psychiatric Psychiatric: A&O x's 3, appropriate affect Results CBC & Chem 7: 04/17/18 13:49 04/18/18 05:26 Labs: Abnormal Lab Results - Last 24 Hours (Table) 04/17/18 04/18/18 Range/Units 16:22 05:26 Glucose 105 H (74-99) mg/dL Total Protein 6.1 L (6.3-8.2) g/dL HDL Cholesterol 24 L (40-60) mg/dL Urine Protein Trace H (Negative) Microbiology - Last 24 Hours (Table) 04/17/18 16:22 Urine Culture - Preliminary Urine,Voided CT Scan - head: report reviewed, image reviewed Assessment and Plan (1) Brain mass Narrative/Plan: The patient's computed tomography scan was done without contrast and shows areas of significant edema in multiple locations, as noted in the HPI. Images were personally reviewed. The clinical picture is highly suspicious for a mass lesion causing vasogenic edema leading to his neurologic deficit. The patient has been seen by neurology. He needs an MRI with contrast, that has been ordered with results pending at this time. The clinical picture, possible differentials, and implications were discussed in detail with him and his . As ordered above, he was informed that mass lesion of the brain or the primary differential at this point. Assuming that the MRI confirms the same, metastatic malignancy to the brain would be the primary concern. Computed tomography scan of the chest abdomen and pelvis will be ordered to check for possible primary sites as well as targets for biopsy if appropriate In the meantime the patient be started on high dose IV Decadron. As he has large areas of edema involving the base of the brain, I will also give him a 2 doses of mannitol reduce risk of herniation. Current Visit: Yes Status: Acute Code(s): G93.9 - DISORDER OF BRAIN, UNSPECIFIED SNOMED Code(s): 736921116 Plan: The case, and recommendations were discussed in detail with the admitting service.
--- NOTE | 2018-04-18 17:40 | P.PN ---
Subjective Progress Note Date: 04/18/18 Principal diagnosis: Possible brain metastases 72-year-old -Leb[place] male, apparently in good health at baseline. Over the past 3 weeks, he had noted some increasing weakness in his left upper and lower extremity. The onset was fairly gradual. There was no associated headache, visual complaints, difficulty in speaking or swallowing. His noted that the patient had become slowly less active. He also had 2-3 falls. He started using a cane and subsequently progressed to needing a walker and then a wheelchair because of progressive weakness. He was therefore brought into the emergency room. He had a computed tomography scan of the brain done without contrast, that showed evidence of a 4 cm area of edema in the right parietal area, at least 2 other areas of edema on the right, including a 5 x 3 cm area in the right internal capsule and thalamus and a 1.5 cm area involving the third ventricle, as well as a 4 cm area of edema in the left cerebellum. The clinical picture was highly suspicious for underlying mass lesions causing vasogenic edema. Objective - Vital Signs Vital signs: Vital Signs Temp 97.9 F 04/18/18 11:30 Pulse 56 L 04/18/18 11:30 Resp 18 04/18/18 11:30 BP 131/71 04/18/18 11:30 Pulse Ox 97 04/18/18 11:30 Intake & Output 04/17/18 04/18/18 04/18/18 18:59 06:59 18:59 Intake Total 780 473 Output Total 400 Balance 380 473 Weight 98.883 kg 99.5 kg Intake: Intake, IV Titration 300 Amount Sodium Chloride 0.9% 1, 300 000 ml @ 100 mls/hr IV . Q10H STA Rx#:[id number] Oral 480 473 Output: Urine 400 Other: Voiding Method Urinal Urinal # Voids 3 - Exam - Constitutional General appearance: Present: average body habitus, cooperative, no acute distress - EENT Eyes: Present: anicteric sclerae, EOMI, PERRLA, normal appearance ENT: Present: hearing grossly normal, normal oropharynx Ears: bilateral: normal - Neck Neck: Present: normal ROM. Absent: lymphadenopathy, rigidity, thyromegaly Carotids: negative: bruit present Thyroid: bilateral: normal size, negative: enlarged, nodule - Respiratory Respiratory: bilateral: CTA, negative: rales, rhonchi, wheezing - Cardiovascular Rhythm: regular Heart sounds: normal: S1, S2 Abnormal Heart Sounds: Absent: systolic murmur, diastolic murmur - Gastrointestinal General gastrointestinal: Present: normal bowel sounds, soft. Absent: distended , organomegaly, tenderness - Genitourinary Genitourinary Comment(s): deferred - Integumentary Integumentary: Present: normal turgor. Absent: jaundiced, rash, ulcer - Neurologic Neurologic: Present: CNII-XII intact. Patient has marked weakness on left side left upper extremity muscle strength is 3/ 5 and left lower extremities 3/5 - Musculoskeletal Musculoskeletal: Present: gait normal, strength equal bilaterally - Psychiatric Psychiatric: Present: A&O x's 3, appropriate affect, intact judgment & insight - Labs CBC & Chem 7: 04/17/18 13:49 04/18/18 05:26 Labs: Abnormal Lab Results - Last 24 Hours (Table) 04/17/18 04/18/18 Range/Units 16:22 05:26 Glucose 105 H (74-99) mg/dL Total Protein 6.1 L (6.3-8.2) g/dL HDL Cholesterol 24 L (40-60) mg/dL Urine Protein Trace H (Negative) Microbiology - Last 24 Hours (Table) 04/17/18 16:22 Urine Culture - Preliminary Urine,Voided Assessment and Plan Assessment: 1. Brain mass; multiple with mass effect; left hemiparesis - Patient is started on IV Decadron for cerebral edema effect - Hematology oncology is on board and have recommended to doses of mannitol to reduce the risk of herniation - Neurology is consulted and have recommended an MRI of the brain for further evaluation - Hematology has ordered CT of the chest, abdomen and pelvis for further evaluation 2. Sinus bradycardia with first-degree AV block - Old EKG is not available for comparison - We will monitor troponins and EKG; await further recommendations from cardiology - 2-D echocardiogram is ordered and pending 3. Hypertension; currently stable 4. Chronic neck and back pain; stable 5. DVT prophylaxis CODE STATUS; full code Time with Patient: Greater than 30
[2018-04-18] MEDS: DEXAMETHASONE SOD PHOSPHATE 10 MG/ML 1 ML VIAL IV SCH ×2 (18:12→23:35)
[2018-04-18] MEDS: NYSTATIN 100,000 UNIT/GM POWD 15 GM TOPICAL SCH ×2 (18:12→21:26)
--- NOTE | 2018-04-18 18:16 | MR ---
EXAMINATION TYPE: MR brain wo/w con DATE OF EXAM: 04/18/2018 COMPARISON: NONE HISTORY: Lt arm/leg weakness, abn CT TECHNIQUE: Multiplanar, multisequence images of the brain and brainstem is performed without and with IV contras t, utilizing 10 mL intravenous Gadavist . FINDINGS: There is a 2.2 cm enhancing mass at the anterior aspect of the thalamus on the right side. There is surrounding white matter edema. There is a 13 mm ring-enhancing mass adjacent to the cerebra l falx at the right parietal convexity within the right parietal cortex. There is surrounding edema. There is 16 mm ring-enhancing mass within the central left cerebral hemisphere with surrounding edema . There is no evidence of intracranial hemorrhage. Calvarium is intact. There is thinning of the sara us callosum. There is a 5 mm nodular area of pathologic enhancement in the superior right cerebellar hemisphere. Sella turcica appears normal. Brainstem is intact. There is no evidence of cortical infarct. IMPRESSION: Multiple enhancing intra-axial lesions as above consistent with metastatic disease.
[2018-04-18] MEDS: IOPAMIDOL-300 CONTRAST 30 ML VIAL (ORAL USE) PO PRN ×2 (18:48→19:33)
--- NOTE | 2018-04-18 19:17 | P.CNNES ---
History of Present Illness Consult date: 04/18/18 Requesting physician: Bennett Celeste Reason for Consult: Left arm and leg weakness History of Present Illness: A pleasant 72-year-old -Burkin[place] male who is being evaluated by the neurology service on 04/18/2018 per the request of Dr. Celeste for left-sided weakness. Patient is awake state left-sided weakness has been progressing over the last few weeks. [facility] however, patient was declining rapidly and they decided to come to [facility] for evaluation. Patient does have a history of hypertension, cervicalgia and lumbago, and history of cervical stenosis status post orthopedic surgery. Patient and deny headache, slurred speech, or visual changes. Patient reports falls at home. Patient takes [place] for back pain in the home setting. Patient had CT of the brain done which showed a 5 cm area poorly marginated edema in the right parietal lobe. There is also a second focus of edema in the right thalamus and internal capsule. Computed tomography scan shows increased density the anterior aspect of the third ventricle consistent with a mass. This may be related to metastatic disease. No evidence of intracranial hemorrhage. CT of the cervical spine shows spondylitic changes. Oncology has been consulted. Patient will have abdominal CT done later this evening. Labs on admission were essentially unremarkable. Vital signs on admission were temp 98.4, pulse 65, respiratory rate 16, blood pressure 134/69, and oxygen saturation 98% on room air. At the time of my evaluation, patient is resting comfortably in bed and appears to be in no acute distress Review of Systems REVIEW OF SYSTEMS: Otherwise unremarkable and noncontributory. Past Medical History Past Medical History: Hypertension Additional Past Medical History / Comment(s): neck and back pain History of Any Multi-Drug Resistant Organisms: None Reported Past Surgical History: Joint Replacement, Orthopedic Surgery Additional Past Surgical History / Comment(s): neck Past Anesthesia/Blood Transfusion Reactions: No Reported Reaction Smoking Status: Current every day smoker - Past Family History Mother Additional Family Medical History / Comment(s): etoh Brother(s) Additional Family Medical History / Comment(s): etoh Father History Unknown: Yes Medications and Allergies Home Medications Medication Instructions Recorded Confirmed Type HYDROcodone/APAP 10-325MG [[place] 1 tab PO TID 03/07/17 04/17/18 History 10-325] Sennosides/Docusate Sodium 1 tab PO BID 03/07/17 04/17/18 History [Docusate Sodium-Senna Tablet] Tamsulosin HCl [Flomax] 0.4 mg PO HS 03/07/17 04/17/18 History amLODIPine [Norvasc] 5 mg PO DAILY 03/07/17 04/17/18 History Allergies Allergy/AdvReac Type Severity Reaction Status Date / Time No Known Allergies Allergy Verified 04/17/18 13:27 Physical Examination - Vital Signs Vital Signs: Vital Signs Temp Pulse Pulse Resp BP BP Pulse Ox 04/18/18 16:00 97.5 F L 59 L 18 148/80 97 04/18/18 11:30 97.9 F 56 L 18 131/71 97 04/18/18 08:49 95 04/18/18 08:00 97.5 F L 63 18 141/65 97 04/18/18 04:10 98.8 F 52 L 18 138/77 95 04/18/18 00:10 98.3 F 57 L 18 164/82 96 04/17/18 20:10 98.4 F 66 17 171/82 98 04/17/18 19:17 97.9 F 78 16 142/78 98 Intake and Output 04/18/18 04/18/18 04/18/18 06:59 14:59 22:59 Intake Total 473 Output Total 400 300 Balance -400 173 Intake: Oral 473 Output: Urine 400 300 Other: Voiding Method Urinal Urinal # Voids 3 Weight 99.5 kg PHYSICAL EXAM: GENERAL APPEARANCE: Patient is a well-developed, -[place]kin[place] male who appears to be in no acute distress. HEENT: Normocephalic, atraumatic, no facial asymmetry is seen. Neck is supple with no masses felt. CARDIOVASCULAR: Regular rate and rhythm. ABDOMEN: Nontender, nondistended. EXTREMITIES: Show no edema or clubbing. NEUROLOGICAL EXAM: Patient is awake, alert, and oriented 3. Speech and language are normal. Strength is 3+/5 in the left upper extremity and 4/5 in left lower extremity. Strength is 5/5 on the right side. Sensory exam to light touch is normal in all 4 extremities. No facial asymmetry seen on cranial nerve testing. No tremors or seizure-like activity noted. Results - Laboratory Findings CBC and BMP: 04/17/18 13:49 04/18/18 05:26 Abnormal Lab Findings: Abnormal Labs 04/17/18 04/17/18 04/17/18 13:49 13:49 16:22 Glucose 118 H Total Creatine Kinase 37 L Total Protein HDL Cholesterol Urine Protein Trace H 04/18/18 05:26 Glucose 105 H Total Creatine Kinase Total Protein 6.1 L HDL Cholesterol 24 L Urine Protein Assessment and Plan Plan: Impression: 1. Abnormal MRI of the brain/brain mass 2. Left hemiparesis 3. Hypertension 4. Cardiac arrhythmia 5. Chronic neck and back pain Recommendation: Patient presents with left hemiparesis and had computed tomography scan done on admission. Abnormal computed tomography scan suggestive of a brain mass. Patient had MRI done which confirms possible metastatic disease. Hematology oncology has been consulted. Patient will undergo CT of the abdomen and pelvis later today. Hematology has started patient on Decadron and mannitol to reduce cerebral edema. Continue current workup. I will continue to follow with you. Further recommendations to follow testing. Continue neurological checks. Thank you for allowing me to participate in the care of your patient. Feel free to call with any questions or concerns. I performed an examination of the patient and discussed the management with the STAFF DESIGN ENGINEER. I have reviewed the STAFF DESIGN ENGINEER notes and agree with the findings and plan of care.
--- NOTE | 2018-04-18 20:40 | CT ---
EXAMINATION TYPE: CT ChestAbdPelvis w con DATE OF EXAM: 04/18/2018 COMPARISON: NONE HISTORY: Patient offers no complaints at time of study. Brain masses. CT DLP: 1300 mGycm Automated exposure control for dose reduction was used. CONTRAST: CT scan of the chest, abdomen and pelvis is performed with Oral Contrast and with IV Contrast, patien t injected with 100 mL of Isovue 300. FINDINGS: There is mild pulmonary emphysema. There is a lobulated 7 cm mass in the left midlung involving the u pper lobe. There is an enlarged 3 cm lymph node anterior to the aortic arch. There is 2 cm enlarged r ight paratracheal lymph node. Heart size is normal. There is no pericardial effusion. The other lung milan are clear. There is no pleural effusion. Liver shows no focal defect. Bile ducts are not dilated. Gallbladder appears normal. Spleen appears n ormal. There is no pancreatic mass. Kidneys show satisfactory contrast opacification. There is no hyd ronephrosis. There is 3.7 cm cortical cyst on the medial left kidney. There is no adrenal mass. There is no retroperitoneal adenopathy. Abdominal aorta is atheromatous. There is no intestinal wall thickening. There are no dilated loops. There is prostatic calcification. Bladder distends smoothly. Appendix appears normal. There are spondylotic changes in the thoracic and lumbar spine. I see no bon y destructive process. IMPRESSION: Large left upper lobe mass with mediastinal adenopathy. This is suggestive of primary mal ignancy. Left renal cortical cyst. Atherosclerotic vascular disease. Mild pulmonary emphysema.
[2018-04-18] MEDS ORDERED: SALINE 1 500ML.BAG with MANNITOL 20% PMX 125 ML IV SCH (21:00)
[2018-04-18] MEDS: MANNITOL 20% IV SCH ×2 (21:26→22:30)
[2018-04-18] MEDS: TAMSULOSIN 0.4 MG CAP.ER.24H PO SCH (21:26)
[2018-04-19 00:52] LABS: Glucose,Whole Blood 198 mg/dL (75-99)
[2018-04-19] MEDS: HYDROcodone/APAP 10-325MG 1 EACH TAB PO PRN (01:44)
[2018-04-19 02:12] VITALS: TEMP 97.9
[2018-04-19 03:05] VITALS: BP 152/84; PULSE 74; RESP 16
[2018-04-19 03:26] LABS: ALT 31 U/L (21-72); AST 26 U/L (17-59); Albumin 4.1 g/dL (3.5-5.0); Alkaline Phosphatase 100 U/L (38-126); Anion Gap 14 mmol/L; Blood Urea Nitrogen 12 mg/dL (9-20); Calcium 9.8 mg/dL (8.4-10.2); Carbon Dioxide 25 mmol/L (22-30); Chloride 96 mmol/L (98-107); Glucose 152 mg/dL (74-99); Potassium 4.6 mmol/L (3.5-5.1); Sodium 135 mmol/L (137-145); Total Bilirubin 0.4 mg/dL (0.2-1.3); Total Protein 7.2 g/dL (6.3-8.2)
[2018-04-19 04:26] LABS: Basophils % (A) 0 %; Eosinophils % (A) 0 %; HCT 42.8 % (39.0-53.0); HGB 14.6 gm/dL (13.0-17.5); Lymphocytes # (A) 1.3 k/uL (1.0-4.8); Lymphocytes % (A) 23 %; MCH 31.3 pg (25.0-35.0); MCHC 34.1 g/dL (31.0-37.0); MCV 91.7 fL (80.0-100.0); Mean Platelet Volume 7.6; Monocytes # (A) 0.1 k/uL (0-1.0); Monocytes % (A) 2 %; Neutrophils # (A) 4.2 k/uL (1.3-7.7); Neutrophils % (A) 75 %; Platelet Count 298 k/uL (150-450); RBC 4.67 m/uL (4.30-5.90); RDW 12.5 % (11.5-15.5); WBC 5.6 k/uL (3.8-10.6)
[2018-04-19 04:28] LABS: Phosphorus 2.9 mg/dL (2.5-4.5)
[2018-04-19 04:34] LABS: INR 1.1 (<1.2); Prothrombin Time 10.3 sec (9.0-12.0)
== END 2018-04-19 04:19 | disposition short-term general hospital (02) | DRG 56 ==
LOC: EC 13:13 → 3SUR 14:17 → 4MS4W 17:03 → 6SEL 18:22 → OBSVTOIN 04-18 12:37 → 6ICU 04-19 00:43
PROVIDERS: ADMIT Hospitalist; ATTEND Hospitalist
DX: G81.94 Hemiplegia, unspecified affecting left nondominant side (principal); G93.6 Cerebral edema; I10 Essential (primary) hypertension; G89.29 Other chronic pain; M54.5 Low back pain; M54.2 Cervicalgia; I44.0 Atrioventricular block, first degree; R00.1 Bradycardia, unspecified; F17.210 Nicotine dependence, cigarettes, uncomplicated; Z71.6 Tobacco abuse counseling; Z79.891 Long term (current) use of opiate analgesic; Z79.899 Other long term (current) drug therapy; Z96.60 Presence of unspecified orthopedic joint implant; Z81.1 Family history of alcohol abuse and dependence
CPT/HCPCS: 36415; 70450; 70553; 71260; 72125; 74177; 80053; 80061; 81003; 82550; 82553; 83036; 83735; 84100; 84484; 85025; 85610; 85730; 87086; 93005; 93306; 94760; 96360; 96361; 99285

== ENCOUNTER → 2018-05-13 | Outpatient (CLI) | payer OTHER ==
[2018-05-13 15:19] LABS: Anion Gap 10 mmol/L; Blood Urea Nitrogen 20 mg/dL (9-20); Calcium 9.2 mg/dL (8.4-10.2); Carbon Dioxide 28 mmol/L (22-30); Chloride 95 mmol/L (98-107); Glucose 162 mg/dL (74-99); Potassium 4.5 mmol/L (3.5-5.1); Sodium 133 mmol/L (137-145)
== END | disposition home or self-care (01) ==
LOC: LABWHC1 14:13
PROVIDERS: ATTEND Radiology Radiation Oncology
DX: D02.20 Carcinoma in situ of unspecified bronchus and lung (principal); E87.1 Hypo-osmolality and hyponatremia
CPT/HCPCS: 36415; 80048

== ENCOUNTER 2018-05-14 17:38 | Inpatient (IN) | payer OTHER, MEDICARE ==
[2018-05-14] MEDS ORDERED: ACETAMINOPHEN TAB 500 MG TAB PO STA (18:00)
--- NOTE | 2018-05-14 18:03 | ED ---
Weakness HPI - General Source: patient, EMS Mode of arrival: EMS Limitations: altered mental status, physical limitation <Anny Mendes - Last Filed: 05/14/18 20:28> <Jose A Foote - Last Filed: 05/14/18 20:51> - General Chief complaint: Weakness Stated complaint: weakness Time Seen by Provider: 05/14/18 17:44 - History of Present Illness Initial comments: 72-year-old male patient presents to the emergency department today for increased weakness and difficulty with urination. The patient was recently diagnosed with brain and lung cancer, started radiation treatment this morning. Family reported as the day progressed patient became more week. States that he was having difficulty urinating today. Patient did was nonverbal during my exam, no family members present. Patient did nod head to certain questions. Patient was found to be febrile at 102.7 upon arrival. Also hypertensive. Patient denies any abdominal pain, constipation, diarrhea, cough, or congestion. Denies any chest pain or trouble breathing. (Anny Mendes) - Related Data Home Medications Medication Instructions Recorded Confirmed HYDROcodone/APAP 10-325MG [[place] 1 tab PO TID 03/07/17 04/17/18 10-325] Sennosides/Docusate Sodium 1 tab PO BID 03/07/17 04/17/18 [Docusate Sodium-Senna Tablet] Tamsulosin HCl [Flomax] 0.4 mg PO HS 03/07/17 04/17/18 amLODIPine [Norvasc] 5 mg PO DAILY 03/07/17 04/17/18 Allergies Allergy/AdvReac Type Severity Reaction Status Date / Time No Known Allergies Allergy Verified 04/17/18 13:27 Review of Systems ROS Other: All systems not noted in ROS Statement are negative. <Anny Mendes - Last Filed: 05/14/18 20:28> ROS Other: All systems not noted in ROS Statement are negative. <Jose A Foote - Last Filed: 05/14/18 20:51> ROS Statement: Those systems with pertinent positive or pertinent negative responses have been documented in the HPI. Past Medical History Past Medical History: Hypertension Additional Past Medical History / Comment(s): neck and back pain History of Any Multi-Drug Resistant Organisms: None Reported Past Surgical History: Joint Replacement, Orthopedic Surgery Additional Past Surgical History / Comment(s): neck Past Anesthesia/Blood Transfusion Reactions: No Reported Reaction Past Psychological History: No Psychological Hx Reported Smoking Status: Current every day smoker Past Alcohol Use History: None Reported Past Drug Use History: None Reported - Past Family History Mother Additional Family Medical History / Comment(s): etoh Brother(s) Additional Family Medical History / Comment(s): etoh Father History Unknown: Yes <Anny Mendes - Last Filed: 05/14/18 20:28> General Exam Limitations: altered mental status, physical limitation General appearance: alert, in no apparent distress, other (This is a well- developed, well-nourished elderly male patient in no acute distress. Vital signs upon presentation are temperature 102.7F, pulse 113, respirations 20, blood pressure 217/163, pulse ox 96% on room air.) Eye exam: Present: normal appearance, PERRL, EOMI. Absent: scleral icterus, conjunctival injection, periorbital swelling ENT exam: Present: normal exam, normal oropharynx, mucous membranes moist Neck exam: Present: normal inspection, full ROM. Absent: tenderness, meningismus, lymphadenopathy Respiratory exam: Present: normal lung sounds bilaterally. Absent: respiratory distress, wheezes, rales, rhonchi, stridor Cardiovascular Exam: Present: normal rhythm, tachycardia, normal heart sounds. Absent: systolic murmur, diastolic murmur, rubs, gallop, clicks GI/Abdominal exam: Present: soft, normal bowel sounds. Absent: distended, tenderness, guarding, rebound, rigid Neurological exam: Present: alert, CN II-XII intact. Absent: oriented X3 ( oriented x1) Psychiatric exam: Present: normal affect, normal mood Skin exam: Present: warm, dry, intact, normal color. Absent: rash <Anny Mendes - Last Filed: 05/14/18 20:28> Course <Anny Mendes - Last Filed: 05/14/18 20:28> <Jose A Foote - Last Filed: 05/14/18 20:51> Vital Signs 05/14/18 05/14/18 05/14/18 17:41 19:24 20:00 Temperature 102.7 F H 102.2 F H Pulse Rate 113 H 112 H 107 H Respiratory 19 16 18 Rate Blood Pressure 217/163 137/80 128/75 O2 Sat by Pulse 96 98 Oximetry - Reevaluation(s) Reevaluation #1: 05/14/18 20:51 I personally saw and examined the patient I reviewed and agree with the PA/and P findings including all diagnostic interpretations treatment plans is written less otherwise stated. Case was discussed with the hospitalist patient will be admitted. (Jose A Foote) EKG Findings - EKG Comments: EKG Findings:: EKG obtained at 191 shows sinus tachycardia with a left anterior fascicular block. Ventricular rate is 113, NM interval 160, QRS duration 82, QT 328, QTC 449. No evidence of ST elevation or depression. There is minimal artifact related to patient shaking. <Anny Mendes - Last Filed: 05/14/18 20:28> Medical Decision Making - Lab Data Result diagrams: 05/14/18 18:26 05/14/18 18:26 - Radiology Data Radiology results: report reviewed, image reviewed <Anny Mendes - Last Filed: 05/14/18 20:28> - Lab Data Result diagrams: 05/14/18 18:26 05/14/18 18:26 <Jose A Foote - Last Filed: 05/14/18 20:51> - Medical Decision Making 72-year-old male patient presented to the emergency department today for complaints of weakness, he was found to have a fever upon arrival 102.7. Labs reviewed and did reveal an elevated lactic acid at 2.9, urinalysis was positive for nitrites and evidence of infection. Patient will be admitted to the hospital for IV antibiotics. Did discuss the case with Dr. Celeste who recommends cefepime. Patient started radiation for brain and lung cancer today. Patient was started on cefepime, IV fluids ordered, tylenol added for fever control. Patient informed of plan, he is agreeable. (Anny Mendes) - Lab Data Lab Results 05/14/18 05/14/18 05/14/18 Range/Units 18:26 18:26 18:26 WBC 4.1 (3.8-10.6) k/uL RBC 5.39 (4.30-5.90) m/uL Hgb 17.2 (13.0-17.5) gm/dL Hct 50.2 (39.0-53.0) % MCV 93.2 (80.0-100.0) fL MCH 31.9 (25.0-35.0) pg MCHC 34.2 (31.0-37.0) g/dL RDW 13.3 (11.5-15.5) % Plt Count 102 L D (150-450) k/uL Neutrophils % 89 % Lymphocytes % 8 % Monocytes % 2 % Eosinophils % 0 % Basophils % 0 % Neutrophils # 3.7 (1.3-7.7) k/uL Lymphocytes # 0.3 L (1.0-4.8) k/uL Monocytes # 0.1 (0-1.0) k/uL Eosinophils # 0.0 (0-0.7) k/uL Basophils # 0.0 (0-0.2) k/uL PT (9.0-12.0) sec INR (<1.2) APTT (22.0-30.0) sec Sodium 133 L (137-145) mmol/L Potassium 4.9 (3.5-5.1) mmol/L Chloride 95 L (98-107) mmol/L Carbon Dioxide 24 (22-30) mmol/L Anion Gap 14 mmol/L BUN 19 (9-20) mg/dL Creatinine 0.60 L (0.66-1.25) mg/dL Est GFR (CKD-EPI)AfAm >90 (>60 ml/min/1.73 sqM) Est GFR (CKD-EPI)NonAf >90 (>60 ml/min/1.73 sqM) Glucose 143 H (74-99) mg/dL Plasma Lactic Acid Lance (0.7-2.0) mmol/L Calcium 9.3 (8.4-10.2) mg/dL Total Bilirubin 1.0 (0.2-1.3) mg/dL AST 44 (17-59) U/L ALT 81 H (21-72) U/L Alkaline Phosphatase 114 (38-126) U/L Total Creatine Kinase 27 L (55-170) U/L CK-MB (CK-2) 0.5 (0.0-2.4) ng/mL CK-MB (CK-2) Rel Index 1.9 Troponin I 0.024 (0.000-0.034) ng/mL Total Protein 6.9 (6.3-8.2) g/dL Albumin 4.0 (3.5-5.0) g/dL Urine Color Urine Appearance (Clear) Urine pH (5.0-8.0) Ur Specific Morris (1.001-1.035) Urine Protein (Negative) Urine Glucose (UA) (Negative) Urine Ketones (Negative) Urine Blood (Negative) Urine Nitrite (Negative) Urine Bilirubin (Negative) Urine Urobilinogen (<2.0) mg/dL Ur Leukocyte Esterase (Negative) Urine RBC (0-5) /hpf Urine WBC (0-5) /hpf Urine WBC Clumps (None) /hpf Ur Squamous Epith Cells (0-4) /hpf Urine Mucus (None) /hpf 05/14/18 05/14/18 05/14/18 Range/Units 18:26 18:26 19:20 WBC (3.8-10.6) k/uL RBC (4.30-5.90) m/uL Hgb (13.0-17.5) gm/dL Hct (39.0-53.0) % MCV (80.0-100.0) fL MCH (25.0-35.0) pg MCHC (31.0-37.0) g/dL RDW (11.5-15.5) % Plt Count (150-450) k/uL Neutrophils % % Lymphocytes % % Monocytes % % Eosinophils % % Basophils % % Neutrophils # (1.3-7.7) k/uL Lymphocytes # (1.0-4.8) k/uL Monocytes # (0-1.0) k/uL Eosinophils # (0-0.7) k/uL Basophils # (0-0.2) k/uL PT 10.2 (9.0-12.0) sec INR 1.0 (<1.2) APTT 21.1 L (22.0-30.0) sec Sodium (137-145) mmol/L Potassium (3.5-5.1) mmol/L Chloride (98-107) mmol/L Carbon Dioxide (22-30) mmol/L Anion Gap mmol/L BUN (9-20) mg/dL Creatinine (0.66-1.25) mg/dL Est GFR (CKD-EPI)AfAm (>60 ml/min/1.73 sqM) Est GFR (CKD-EPI)NonAf (>60 ml/min/1.73 sqM) Glucose (74-99) mg/dL Plasma Lactic Acid Lance 2.9 H* (0.7-2.0) mmol/L Calcium (8.4-10.2) mg/dL Total Bilirubin (0.2-1.3) mg/dL AST (17-59) U/L ALT (21-72) U/L Alkaline Phosphatase (38-126) U/L Total Creatine Kinase (55-170) U/L CK-MB (CK-2) (0.0-2.4) ng/mL CK-MB (CK-2) Rel Index Troponin I (0.000-0.034) ng/mL Total Protein (6.3-8.2) g/dL Albumin (3.5-5.0) g/dL Urine Color Yellow Urine Appearance Cloudy (Clear) Urine pH 5.5 (5.0-8.0) Ur Specific Morris 1.019 (1.001-1.035) Urine Protein Trace H (Negative) Urine Glucose (UA) Negative (Negative) Urine Ketones Negative (Negative) Urine Blood Moderate H (Negative) Urine Nitrite Positive (Negative) Urine Bilirubin Negative (Negative) Urine Urobilinogen <2.0 (<2.0) mg/dL Ur Leukocyte Esterase Large H (Negative) Urine RBC 39 H (0-5) /hpf Urine WBC >182 H (0-5) /hpf Urine WBC Clumps Few H (None) /hpf Ur Squamous Epith Cells <1 (0-4) /hpf Urine Mucus Rare H (None) /hpf - Radiology Data There is a dense 7 cm mean diameter mass in the left suprahilar position. It appears predominantly smoothly marginated, and is suspicious for neoplastic process. Lungs are otherwise unremarkable as seen, except hemidiaphragms are elevated consistent with low lung inflation at the moment of x-ray exposure on both frontal and lateral views. The upper external days or over the chest on the lateral view, during visualization to at least a moderate degree. The pleural spaces are negative. Cardiac silhouette is not enlarged; the mediastinal silhouette is unremarkable. Skeletal structures and soft tissues are unremarkable. Impression by Dr. Fabi Moon shows 7 cm mean diameter left suprahilar bronchogenic mass; would recommend eventual further characterization using CT chest with contrast (Anny Mendes) Disposition Decision to Admit Reason: Admit from EC Decision Date: 05/14/18 Decision Time: 20:31 <Anny Mendes - Last Filed: 05/14/18 20:28> <Jose A Foote - Last Filed: 05/14/18 20:51> Clinical Impression: Urinary tract infection, Sepsis, Weakness Disposition: ADMITTED IP TO THIS [facility] Condition: Serious Referrals: None,Stated [REFERRING] - 1-2 days
[2018-05-14] MEDS: SODIUM CHLORIDE 0.9% 500 ML IV SCH (18:30)
[2018-05-14 18:53] LABS: ALT 81 U/L (21-72); AST 44 U/L (17-59); Alkaline Phosphatase 114 U/L (38-126); Anion Gap 14 mmol/L; Blood Urea Nitrogen 19 mg/dL (9-20); Calcium 9.3 mg/dL (8.4-10.2); Carbon Dioxide 24 mmol/L (22-30); Chloride 95 mmol/L (98-107); Glucose 143 mg/dL (74-99); Potassium 4.9 mmol/L (3.5-5.1); Sodium 133 mmol/L (137-145); Total Protein 6.9 g/dL (6.3-8.2)
[2018-05-14 19:03] LABS: Prothrombin Time 10.2 sec (9.0-12.0)
[2018-05-14 19:07] LABS: Creatine Kinase MB 0.5 ng/mL (0.0-2.4); Troponin I 0.024 ng/mL (0.000-0.034)
[2018-05-14 19:11] LABS: Basophils % (A) 0 %; Eosinophils % (A) 0 %; HCT 50.2 % (39.0-53.0); HGB 17.2 gm/dL (13.0-17.5); Lymphocytes # (A) 0.3 k/uL (1.0-4.8); Lymphocytes % (A) 8 %; MCH 31.9 pg (25.0-35.0); MCHC 34.2 g/dL (31.0-37.0); MCV 93.2 fL (80.0-100.0); Mean Platelet Volume 6.8; Monocytes # (A) 0.1 k/uL (0-1.0); Monocytes % (A) 2 %; Neutrophils # (A) 3.7 k/uL (1.3-7.7); Neutrophils % (A) 89 %; Platelet Count 102 k/uL (150-450); RBC 5.39 m/uL (4.30-5.90); RDW 13.3 % (11.5-15.5); WBC 4.1 k/uL (3.8-10.6)
[2018-05-14 19:23] LABS: Partial Thromboplastin Time 21.1 sec (22.0-30.0)
[2018-05-14] MEDS ORDERED: SODIUM CHLORIDE 0.9% 500 ML IV ONE (19:28)
[2018-05-14 19:56] LABS: Appearance,Urine Cloudy (Clear); Bilirubin,Urine Negative (Negative); Blood,Urine Moderate (Negative); Color,Urine Yellow; Glucose,Urine (UA) Negative (Negative); Ketones,Urine Negative (Negative); Leukocyte Esterase,Urine Large (Negative); Mucus,Urine Rare /hpf; Nitrite,Urine Positive (Negative); PH, Urine 5.5 (5.0-8.0); Protein,Urine Trace (Negative); RBC,Urine 39 /hpf (0-5); Specific Gravity,Urine 1.019 (1.001-1.035); Squamous Epithelial Cell,Urine <1 /hpf (0-4); Urobilinogen,Urine <2.0 mg/dL (<2.0); WBC,Urine >182 /hpf (0-5)
--- NOTE | 2018-05-14 20:01 | XR ---
EXAMINATION: XR chest 2V DATE AND TIME: 05/14/2018 7:06 PM ORDERING PROVIDER: Anny Mendes CLINICAL INDICATION: Fever TECHNIQUE: PA and lateral COMPARISON: 07/11/2011 DESCRIPTION: There is a dense 7 cm mean diameter mass in the left suprahilar position. It appears pre dominantly smoothly marginated, and is suspicious for neoplastic process. Lungs are otherwise unremar kable as seen, except that the hemidiaphragms are elevated - consistent with low lung inflation at th e moment of x-ray exposure on both the frontal and lateral views. The upper extremities are over the chest on the lateral view, obscuring visualization to at least a moderate degree. The pleural spaces are negative. Cardiac silhouette is not enlarged; the mediastinal silhouette is unremarkable. Skeletal structures and soft tissues are unremarkable. IMPRESSION: 7 CM MEAN DIAMETER LEFT SUPRAHILAR BRONCHOGENIC MASS; WOULD RECOMMEND EVENTUAL FURTHER CHARACTERIZATI ON USING CT CHEST W CON.
[2018-05-14] MEDS ORDERED: CEFEPIME 2 GM in SODIUM CHLORIDE 0.9% 50 ML IVPB STA (20:20)
[2018-05-14] MEDS ORDERED: ACETAMINOPHEN TAB 325 MG TAB PO PRN (20:24)
[2018-05-14] MEDS ORDERED: NALOXONE 0.4 MG/ML 1 ML VIAL IV PRN (20:24)
[2018-05-14] MEDS: cefTRIAXone IN SWFI 1,000 MG/10 ML SYRINGE IVP STA ×2 (20:30→20:31)
[2018-05-15] MEDS: SODIUM CHLORIDE 0.9% 500 ML IV SCH (05:24)
[2018-05-15] MEDS: SODIUM CHLORIDE 0.9% 1,000 ML IV SCH ×4 (05:25→18:06)
[2018-05-15 07:33] LABS: ALT 68 U/L (21-72); AST 42 U/L (17-59); Albumin 3.2 g/dL (3.5-5.0); Alkaline Phosphatase 79 U/L (38-126); Anion Gap 11 mmol/L; Blood Urea Nitrogen 18 mg/dL (9-20); Calcium 8.5 mg/dL (8.4-10.2); Carbon Dioxide 25 mmol/L (22-30); Chloride 95 mmol/L (98-107); Glucose 145 mg/dL (74-99); Potassium 4.3 mmol/L (3.5-5.1); Sodium 131 mmol/L (137-145); Total Bilirubin 1.3 mg/dL (0.2-1.3); Total Protein 5.7 g/dL (6.3-8.2)
[2018-05-15 07:59] LABS: HCT 43.3 % (39.0-53.0); HGB 14.7 gm/dL (13.0-17.5); MCH 32.1 pg (25.0-35.0); MCHC 33.9 g/dL (31.0-37.0); MCV 94.7 fL (80.0-100.0); RBC 4.58 m/uL (4.30-5.90); RDW 13.2 % (11.5-15.5); WBC 7.1 k/uL (3.8-10.6)
[2018-05-15] MEDS: CEFEPIME 2 GM in SODIUM CHLORIDE 0.9% 50 ML IVPB SCH ×2 (08:18→20:21)
[2018-05-15] MEDS ORDERED: SODIUM CHLORIDE 0.9% 500 ML IV ONE (09:14)
[2018-05-15 09:25] VITALS: BMI 30.8
[2018-05-15 10:54] LABS: Platelet Count 81 k/uL (150-450)
[2018-05-15 10:58] LABS: Band Neutrophils % 14 %; Eosinophils # (M) 0.07 k/uL (0-0.7); Lymphocytes # (M) 0.64 k/uL (1.0-4.8); Metamyelocytes # (M) 0.07 k/uL (0); Metamyelocytes % 1 %; Monocytes # (M) 0.28 k/uL (0-1.0); Neutrophils % (M) 73 %; Nucleated Red Blood Cells 0 /100 WBC (0-0); Total Cells Counted 200
--- NOTE | 2018-05-15 11:12 | P.HPIM ---
History of Present Illness 72-year-old male patient presents to the emergency department today for increased weakness and difficulty with urination. The patient was recently diagnosed with brain and lung cancer, started radiation treatment yesterday. Patient has been lethargic more week and patient is comparing of dysuria as well. States that he was having difficulty urinating today. Patient is a poor historian but able to provide me appropriate history patient denied any cough runny nose. Patient is comparing of dysuria. Patient blood cultures came back positive for gram-negative bacilli repeat urine cultures today and tomorrow will be obtained. Patient is significant abnormal patient possible source of infection is urinary tract infection. Patient has history of lung cancer with metastatic disease to brain and undergoes radiation therapy. Review of Systems REVIEW OF SYSTEMS: CONSTITUTIONAL: No fever, no malaise, no fatigue. HEENT: No recent visual problems or hearing problems. Denied any sore throat. CARDIOVASCULAR: No chest pain, orthopnea, PND, no palpitations, no syncope. PULMONARY: No shortness of breath, no cough, no hemoptysis. GASTROINTESTINAL: No diarrhea, no nausea, no vomiting, no abdominal pain. Normoactive bowel sounds. NEUROLOGICAL: No headaches, no weakness, no numbness. HEMATOLOGICAL: Denies any bleeding or petechiae. GENITOURINARY: As mentioned in HPI MUSCULOSKELETAL/RHEUMATOLOGICAL: Denies any joint pain, swelling, or any muscle pain. ENDOCRINE: Denies any polyuria or polydipsia. The rest of the 14-point review of systems is negative. Past Medical History Past Medical History: Hypertension Additional Past Medical History / Comment(s): neck and back pain History of Any Multi-Drug Resistant Organisms: None Reported Past Surgical History: Joint Replacement, Orthopedic Surgery Additional Past Surgical History / Comment(s): neck Past Anesthesia/Blood Transfusion Reactions: No Reported Reaction Past Psychological History: No Psychological Hx Reported Additional Psychological History / Comment(s): lives with joan. has cane, walker and w/c. stated that d/t to his weakness -he is using the w/c currently Smoking Status: Current every day smoker Past Alcohol Use History: None Reported Additional Past Alcohol Use History / Comment(s): started smoking age 7, smoking 1/2 ppd. in past drank heavy but quit 2009. 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 and crack/cocaine 14 years ago, currently uses marijuana occ - Past Family History Mother Additional Family Medical History / Comment(s): etoh Brother(s) Additional Family Medical History / Comment(s): etoh Father History Unknown: Yes Medications and Allergies Home Medications Medication Instructions Recorded Confirmed Type HYDROcodone/APAP 10-325MG [[place] 1 tab PO TID 03/07/17 05/15/18 History 10-325] Sennosides/Docusate Sodium 1 tab PO BID 03/07/17 05/15/18 History [Docusate Sodium-Senna Tablet] Tamsulosin HCl [Flomax] 0.4 mg PO HS 03/07/17 05/15/18 History amLODIPine [Norvasc] 5 mg PO DAILY 03/07/17 05/15/18 History Omeprazole [PriLOSEC] 20 mg PO DAILY 05/15/18 05/15/18 History Allergies Allergy/AdvReac Type Severity Reaction Status Date / Time No Known Allergies Allergy Verified 05/15/18 08:42 Physical Exam Vitals: Vital Signs Temp Pulse Pulse Resp BP BP Pulse Ox 05/15/18 08:33 102 H 05/15/18 07:54 100.5 F H 107 H 16 125/74 98 05/15/18 07:42 98 05/15/18 05:00 100.3 F H 102 H 16 153/78 98 05/14/18 21:56 98.4 F 113 H 17 125/80 98 05/14/18 21:31 99.3 F 16 L 16 138/93 100 05/14/18 21:00 106 H 16 128/89 05/14/18 20:00 107 H 18 128/75 98 05/14/18 19:24 102.2 F H 112 H 16 137/80 05/14/18 17:41 102.7 F H 113 H 19 217/163 96 Intake and Output 05/14/18 05/15/18 05/15/18 22:59 06:59 14:59 Output Total 400 Balance -400 Output: Urine 400 Other: Voiding Method Urinal Diaper # Voids 2 1 Weight 108.862 kg 108.862 kg PHYSICAL EXAMINATION: GENERAL: The patient is alert and oriented, patient appears to be tired and lethargic. Feels little bit better compared to yesterday. HEENT: Pupils are round and equally reacting to light. EOMI. No scleral icterus. No conjunctival pallor. Normocephalic, atraumatic. No pharyngeal erythema. No thyromegaly. CARDIOVASCULAR: S1 and S2 present. No murmurs, rubs, or gallops. PULMONARY: Chest is clear to auscultation, no wheezing or crackles. ABDOMEN: Soft, nontender, nondistended, normoactive bowel sounds. No palpable organomegaly. MUSCULOSKELETAL: No joint swelling or deformity. EXTREMITIES: No cyanosis, clubbing, or pedal edema. NEUROLOGICAL: Gross neurological examination did not reveal any focal deficits. SKIN: No rashes. Results CBC & Chem 7: 05/15/18 06:51 05/15/18 06:51 Labs: Abnormal Lab Results - Last 24 Hours (Table) 05/14/18 05/14/18 05/14/18 Range/Units 18:26 18:26 18:26 Plt Count 102 L D (150-450) k/uL Lymphocytes # 0.3 L (1.0-4.8) k/uL Lymphocytes # (Manual) (1.0-4.8) k/uL Metamyelocytes # (Man) (0) k/uL APTT (22.0-30.0) sec Sodium 133 L (137-145) mmol/L Chloride 95 L (98-107) mmol/L Creatinine 0.60 L (0.66-1.25) mg/dL Glucose 143 H (74-99) mg/dL Plasma Lactic Acid Lance (0.7-2.0) mmol/L ALT 81 H (21-72) U/L Total Creatine Kinase 27 L (55-170) U/L Total Protein (6.3-8.2) g/dL Albumin (3.5-5.0) g/dL Urine Protein (Negative) Urine Blood (Negative) Ur Leukocyte Esterase (Negative) Urine RBC (0-5) /hpf Urine WBC (0-5) /hpf Urine WBC Clumps (None) /hpf Urine Mucus (None) /hpf 05/14/18 05/14/18 05/14/18 Range/Units 18:26 18:26 19:20 Plt Count (150-450) k/uL Lymphocytes # (1.0-4.8) k/uL Lymphocytes # (Manual) (1.0-4.8) k/uL Metamyelocytes # (Man) (0) k/uL APTT 21.1 L (22.0-30.0) sec Sodium (137-145) mmol/L Chloride (98-107) mmol/L Creatinine (0.66-1.25) mg/dL Glucose (74-99) mg/dL Plasma Lactic Acid Lance 2.9 H* (0.7-2.0) mmol/L ALT (21-72) U/L Total Creatine Kinase (55-170) U/L Total Protein (6.3-8.2) g/dL Albumin (3.5-5.0) g/dL Urine Protein Trace H (Negative) Urine Blood Moderate H (Negative) Ur Leukocyte Esterase Large H (Negative) Urine RBC 39 H (0-5) /hpf Urine WBC >182 H (0-5) /hpf Urine WBC Clumps Few H (None) /hpf Urine Mucus Rare H (None) /hpf 05/15/18 05/15/18 05/15/18 Range/Units 06:51 06:51 06:51 Plt Count 81 L (150-450) k/uL Lymphocytes # (1.0-4.8) k/uL Lymphocytes # (Manual) 0.64 L (1.0-4.8) k/uL Metamyelocytes # (Man) 0.07 H (0) k/uL APTT (22.0-30.0) sec Sodium 131 L (137-145) mmol/L Chloride 95 L (98-107) mmol/L Creatinine (0.66-1.25) mg/dL Glucose 145 H (74-99) mg/dL Plasma Lactic Acid Lance 2.4 H* (0.7-2.0) mmol/L ALT (21-72) U/L Total Creatine Kinase (55-170) U/L Total Protein 5.7 L (6.3-8.2) g/dL Albumin 3.2 L (3.5-5.0) g/dL Urine Protein (Negative) Urine Blood (Negative) Ur Leukocyte Esterase (Negative) Urine RBC (0-5) /hpf Urine WBC (0-5) /hpf Urine WBC Clumps (None) /hpf Urine Mucus (None) /hpf Microbiology - Last 24 Hours (Table) 05/14/18 18:26 Blood Culture - Final Blood 05/14/18 19:20 Urine Culture - Preliminary Urine,Catheterized Assessment and Plan Plan: -Sepsis and bacteremia secondary to urinary tract infection patient has gram- negative bacilli in the blood and repeat blood cultures will be obtained and patient will be continued on cefepime. -Hypertension hold off amlodipine because of severe sepsis and hypotension. -Lung cancer with brain metastases undergoing radiation to be which will be continued. -Hyponatremia hypotonic hyponatremia probably secondary to sepsis and patient will continued on IV fluids. Next and-severe lactic acidosis I'll go ahead and give him bolus of IV fluids.
--- NOTE | 2018-05-15 16:52 | P.PN ---
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 He had a nearly 2 week stay at [facility] following his diagnosis. He was started yesterday on whole-brain radiotherapy as his disease had been untreated despite being diagnosed with brain metastases 1 month ago. The patient's called our clinic 1 hour after the treatment asking if the radiation could have made his urination painful. He was felt to be feverish and having a lot of pain with urination. This was not reported to us on Saturday when I first saw the patient in consult. He was sent to the ER for further evaluation. He was found to have UTI + sepsis and was subsequently admitted. Upon asking the patient this afternoon he reports he has already had improvement in his urinary discomfort. He currently denies headaches or nausea/ vomiting. He still unfortunately has left hemiparesis with LLE>LUE. Objective - Vital Signs Vital signs: Vital Signs Temp 98.0 F 05/15/18 13:45 Pulse 95 05/15/18 13:45 Resp 16 05/15/18 13:45 BP 140/74 05/15/18 13:45 Pulse Ox 100 05/15/18 13:45 Intake & Output 05/14/18 05/15/18 05/15/18 18:59 06:59 18:59 Intake Total 1250 Output Total 400 500 Balance -400 750 Weight 108.862 kg 108.862 kg Intake: Intake, IV Titration 1250 Amount Cefepime 2 gm In Sodium 50 Chloride 0.9% 50 ml @ 100 mls/hr IVPB Q12HR [facility] Rx #:[id number] Sodium Chloride 0.9% 1, 700 000 ml @ 100 mls/hr IV . Q10H [facility] Rx#:[id number] Sodium Chloride 0.9% 500 500 ml @ 999 mls/hr IV .Q31M [facility] Rx#:[id number] Output: Urine 400 500 Other: Voiding Method Urinal Diaper # Voids 1 - Constitutional General appearance: Present: average body habitus, no acute distress - EENT Eyes: Present: EOMI, PERRLA ENT: Present: hearing grossly normal - Neck Neck: Absent: lymphadenopathy - Respiratory Respiratory: bilateral: CTA - Cardiovascular Rhythm: regular - Gastrointestinal General gastrointestinal: Absent: tenderness - Integumentary Integumentary: Absent: calor - Neurologic Neurologic: Present: CNII-XII intact - Musculoskeletal Musculoskeletal: Present: left sided weakness (LLE, 3/5 hip flexion, 3/5 knee flex/ext) - Psychiatric Psychiatric: Present: A&O x's 3, appropriate affect (Patient is still not very communicative, but responds appropriately to questions ) - Labs CBC & Chem 7: 05/15/18 06:51 05/15/18 06:51 Labs: Abnormal Lab Results - Last 24 Hours (Table) 05/14/18 05/14/18 05/14/18 Range/Units 18:26 18:26 18:26 Plt Count 102 L D (150-450) k/uL Lymphocytes # 0.3 L (1.0-4.8) k/uL Lymphocytes # (Manual) (1.0-4.8) k/uL Metamyelocytes # (Man) (0) k/uL APTT (22.0-30.0) sec Sodium 133 L (137-145) mmol/L Chloride 95 L (98-107) mmol/L Creatinine 0.60 L (0.66-1.25) mg/dL Glucose 143 H (74-99) mg/dL Plasma Lactic Acid Lance (0.7-2.0) mmol/L ALT 81 H (21-72) U/L Total Creatine Kinase 27 L (55-170) U/L Total Protein (6.3-8.2) g/dL Albumin (3.5-5.0) g/dL Urine Protein (Negative) Urine Blood (Negative) Ur Leukocyte Esterase (Negative) Urine RBC (0-5) /hpf Urine WBC (0-5) /hpf Urine WBC Clumps (None) /hpf Urine Mucus (None) /hpf 05/14/18 05/14/18 05/14/18 Range/Units 18:26 18:26 19:20 Plt Count (150-450) k/uL Lymphocytes # (1.0-4.8) k/uL Lymphocytes # (Manual) (1.0-4.8) k/uL Metamyelocytes # (Man) (0) k/uL APTT 21.1 L (22.0-30.0) sec Sodium (137-145) mmol/L Chloride (98-107) mmol/L Creatinine (0.66-1.25) mg/dL Glucose (74-99) mg/dL Plasma Lactic Acid Lance 2.9 H* (0.7-2.0) mmol/L ALT (21-72) U/L Total Creatine Kinase (55-170) U/L Total Protein (6.3-8.2) g/dL Albumin (3.5-5.0) g/dL Urine Protein Trace H (Negative) Urine Blood Moderate H (Negative) Ur Leukocyte Esterase Large H (Negative) Urine RBC 39 H (0-5) /hpf Urine WBC >182 H (0-5) /hpf Urine WBC Clumps Few H (None) /hpf Urine Mucus Rare H (None) /hpf 05/15/18 05/15/18 05/15/18 Range/Units 06:51 06:51 06:51 Plt Count 81 L (150-450) k/uL Lymphocytes # (1.0-4.8) k/uL Lymphocytes # (Manual) 0.64 L (1.0-4.8) k/uL Metamyelocytes # (Man) 0.07 H (0) k/uL APTT (22.0-30.0) sec Sodium 131 L (137-145) mmol/L Chloride 95 L (98-107) mmol/L Creatinine (0.66-1.25) mg/dL Glucose 145 H (74-99) mg/dL Plasma Lactic Acid Lance 2.4 H* (0.7-2.0) mmol/L ALT (21-72) U/L Total Creatine Kinase (55-170) U/L Total Protein 5.7 L (6.3-8.2) g/dL Albumin 3.2 L (3.5-5.0) g/dL Urine Protein (Negative) Urine Blood (Negative) Ur Leukocyte Esterase (Negative) Urine RBC (0-5) /hpf Urine WBC (0-5) /hpf Urine WBC Clumps (None) /hpf Urine Mucus (None) /hpf Microbiology - Last 24 Hours (Table) 05/14/18 18:26 Blood Culture Gram Stain - Preliminary Blood 05/14/18 18:26 Blood Culture - Final Blood 05/14/18 19:20 Urine Culture - Preliminary Urine,Catheterized Assessment and Plan Plan: 1. UTI with sepsis: Continue medical management. 2. Brain metastases: We continued the patient's second fraction today and will plan to treat him tomorrow during his hospital stay as well. It is possible that his recent alteration in mental status (specifically speaking less ) may have also been secondary to UTI as well as his known brain metastases. We will also consult medical oncology as he was supposed to see them in the outpatient setting. We are still waiting on his records from [facility] regarding his 2 week stay there earlier this month. Time with Patient: Less than 30
[2018-05-15] MEDS: NICOTINE 14MG/24HR PATCH TRANSDERM SCH (18:38)
[2018-05-15] MEDS ORDERED: HYDROcodone/APAP 10-325MG 1 EACH TAB PO PRN (19:00)
[2018-05-16] MEDS: SODIUM CHLORIDE 0.9% 1,000 ML IV SCH ×4 (04:08→23:30)
[2018-05-16] MEDS: CEFEPIME 2 GM in SODIUM CHLORIDE 0.9% 50 ML IVPB SCH ×2 (08:44→20:21)
[2018-05-16] MEDS: NICOTINE 14MG/24HR PATCH TRANSDERM SCH (08:44)
[2018-05-16 09:06] LABS: HCT 42.1 % (39.0-53.0); HGB 13.5 gm/dL (13.0-17.5); MCH 30.6 pg (25.0-35.0); MCHC 32.1 g/dL (31.0-37.0); MCV 95.5 fL (80.0-100.0); Mean Platelet Volume 6.7; RBC 4.41 m/uL (4.30-5.90); RDW 13.1 % (11.5-15.5); WBC 8.9 k/uL (3.8-10.6)
[2018-05-16 09:15] LABS: Platelet Count 73 k/uL (150-450)
[2018-05-16 09:25] LABS: Anion Gap 9 mmol/L; Blood Urea Nitrogen 14 mg/dL (9-20); Calcium 8.8 mg/dL (8.4-10.2); Carbon Dioxide 27 mmol/L (22-30); Chloride 96 mmol/L (98-107); Glucose 139 mg/dL (74-99); Potassium 4.6 mmol/L (3.5-5.1); Sodium 132 mmol/L (137-145)
--- NOTE | 2018-05-16 19:13 | PN ---
PROGRESS NOTE DATE OF SERVICE: 05/16/2018. INTERVAL HISTORY: This 72-year-old gentleman who was admitted with UTI with sepsis also gram- negative bacilli. Final ID is pending at this time. Patient also has lung cancer with brain mets. No chest pain. No palpitations. No fever. Dr. Corbin from Radiation Oncology is following the patient closely, recommends to continue with treatment. PAST MEDICAL HISTORY: Reviewed. REVIEW OF SYSTEMS: CARDIOVASCULAR: No angina, RESPIRATORY: As mentioned earlier. GI: No nausea. : No dysuria. NERVOUS: As mentioned earlier. CURRENT MEDICATIONS: Reviewed, include: 1. Tylenol 650 every 6 hours p.r.n. 2. [place] 10 mg q.8h. 3. Norvasc 5 mg daily. 5. Narcan 0.2 q.2h p.r.n. 6. Habitrol 14 mg. 7. Protonix 40 mg daily. 8. Senokot-S 1 tablet p.o. b.i.d. 9. Flomax 0.4 q.h.s. PHYSICAL EXAM: Patient is alert, oriented x3. Pulse 96,blood pressure 116/81, respirations 16, temperature 98.4, pulse ox 96% on 2L. HEENT: Conjunctivae normal. Oral mucosa moist. NECK: No jugular venous distention. No carotid bruits. No lymph node enlargement. CARDIOVASCULAR: S1, S2 muffled. RESPIRATORY: Breath sounds diminished in the bases. Bilateral scattered rhonchi and crackles. ABDOMEN: Soft, nontender. No mass palpable. LEGS: No edema. No swelling. NERVOUS SYSTEM: Higher functions as mentioned earlier. Moves all 4 limbs. Mild diffuse weakness. LYMPHATIC: No lymph nodes palpable in neck or axillae. SKIN: No ulcer, rash or bleeding. LABS: Platelets are 73. Sodium 132. ASSESSMENT: 1. Acute urinary tract infection with sepsis with gram-negative bacilli on IV antibiotics. 2. Hypertension. 3. Lung cancer with brain metastases on radiation therapy. 4. Hyponatremia, possibly hypovolemic. 5. Elevated lactic acid, present on admission. 6. Thrombocytopenia. RECOMMENDATIONS AND DISCUSSION: Recommend to continue current medical management and continue symptomatic treatment. Otherwise, closely follow. Continue with broad-spectrum IV antibiotics. Await ID of the organisms. PT/OT evaluation, repeat labs in the morning. Otherwise, guarded prognosis. Further recommendations to follow. MMODL / IJN: [id number] / POWER
--- NOTE | 2018-05-16 20:16 | P.CONS ---
History of Present Illness - Reason for Consult Consult date: 05/16/18 New Lung Cancer with brain mets Requesting physician: Paulo Corbin - Chief Complaint Fever, UTI - History of Present Illness Mr. Givens was first seen on April 18, 2018 during a medical Oncology Consultation for suspicion of metastatic cancer. The patient is a 72-year-old -[place]ames[place] male, apparently in good health at baseline. Over the past 3 weeks, he had noted some increasing weakness in his left upper and lower extremity. The onset was fairly gradual. There was no associated headache, visual complaints, difficulty in speaking or swallowing. His noted that the patient had become slowly less active. He also had 2-3 falls. He started using a cane and subsequently progressed to needing a walker and then a wheelchair because of progressive weakness. He was therefore brought into the emergency room. He had a computed tomography scan of the brain done without contrast, that showed evidence of a 4 cm area of edema in the right parietal area, at least 2 other areas of edema on the right, including a 5 x 3 cm area in the right internal capsule and thalamus and a 1.5 cm area involving the third ventricle, as well as a 4 cm area of edema in the left cerebellum. The clinical picture was highly suspicious for underlying mass lesions causing vasogenic edema. A full diagnostic work-up was performed with C/A/P CT scans identifying Large 7cm Lobulated Left Midlung Mass with associated 3cm enlarged lymph nodes anterior to the aortic arch and a 2cm right paratracheal node. Clinical picture was concerning for a metastatic Lung Cancer to the Brain. There is a long-standing history of smoking. He apparently has had a prolonged hospital stay at [facility], approximately 2 weeks, after initial diagnosis. We are awaiting these hospital records as per medical record diagnosis of non-small cell lung cancer was made. He was seen by radiation Oncology on Saturday05/14/18, when he received his first treatment of whole brain radiation. His apparently called the office shortly after his first radiation inquiring about potential side effects of treatment being urinary difficulties. He was advised to seek further evaluation in the emergency room for concern of underlying infectious process. He has now been admitted and being treated for UTI. On admission his fever was 102.7. He underwent mclain cultures and was started on antibiotics. His overall mental status has declined somewhat over the past few days per his , he is speaking less and less alert. This may be contributed to the acute Urinary tract infection in the presence of known brain metastasis. 05/16/18 - Mr. Givens is seen in follow-up this am. Last fever 100.5 yesterday 7am. There is no family at bedside, he is responsive, although poor historian. He denies any history of enlarged prostate or previous urinary tract infections. Review of Systems A 14 point review of systems was assessed and completed to the best of my ability with his current lethargy, assisted in ROS Past Medical History Past Medical History: Hypertension Additional Past Medical History / Comment(s): neck and back pain History of Any Multi-Drug Resistant Organisms: None Reported Past Surgical History: Joint Replacement, Orthopedic Surgery Additional Past Surgical History / Comment(s): neck Past Anesthesia/Blood Transfusion Reactions: No Reported Reaction Past Psychological History: No Psychological Hx Reported Additional Psychological History / Comment(s): lives with joan. has cane, walker and w/c. stated that d/t to his weakness -he is using the w/c currently Smoking Status: Current every day smoker Past Alcohol Use History: None Reported Additional Past Alcohol Use History / Comment(s): started smoking age 7, smoking 1/2 ppd. in past drank heavy but quit 2009. 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 and crack/cocaine 14 years ago, currently uses marijuana occ - Past Family History Mother Additional Family Medical History / Comment(s): etoh Brother(s) Additional Family Medical History / Comment(s): etoh Father History Unknown: Yes Medications and Allergies Home Medications Medication Instructions Recorded Confirmed Type HYDROcodone/APAP 10-325MG [[place] 1 tab PO TID 03/07/17 05/15/18 History 10-325] Sennosides/Docusate Sodium 1 tab PO BID 03/07/17 05/15/18 History [Docusate Sodium-Senna Tablet] Tamsulosin HCl [Flomax] 0.4 mg PO HS 03/07/17 05/15/18 History amLODIPine [Norvasc] 5 mg PO DAILY 03/07/17 05/15/18 History Omeprazole [PriLOSEC] 20 mg PO DAILY 05/15/18 05/15/18 History Allergies Allergy/AdvReac Type Severity Reaction Status Date / Time No Known Allergies Allergy Verified 05/15/18 08:42 Physical Exam Vitals: Vital Signs Temp Pulse Resp BP Pulse Ox 05/16/18 05:00 98.3 F 80 16 165/85 99 05/15/18 22:45 98.3 F 89 139/69 05/15/18 13:45 98.0 F 95 16 140/74 100 Intake and Output 05/15/18 05/16/18 05/16/18 22:59 06:59 14:59 Intake Total 590 800 Output Total 1 1 Balance 589 -1 800 Intake: Intake, IV Titration 800 Amount Cefepime 2 gm In Sodium 50 Chloride 0.9% 50 ml @ 100 mls/hr IVPB Q12HR [facility] Rx #:[id number] Sodium Chloride 0.9% 1, 750 000 ml @ 100 mls/hr IV . Q10H [facility] Rx#:[id number] Oral 590 Output: Stool 1 1 Other: Voiding Method Urinal Urinal Diaper Diaper # Voids 2 1 # Bowel Movements 1 - Constitutional General appearance: average body habitus, no acute distress - EENT Eyes: dentition normal, normal appearance ENT: NA/AT, normal oropharynx - Neck supple, trachea midline - Respiratory Respiratory: left: wheezing (Expiratory), bilateral: diminished (bibasilar, no increased respiratory effort noted) - Cardiovascular Heart rate: 108 Rhythm: regular Heart sounds: normal: S1, S2 - Gastrointestinal General gastrointestinal: normal bowel sounds, soft - Integumentary Dry, intact Integumentary: normal, pale - Neurologic Lethargy and slower speaking, improving. - Musculoskeletal Musculoskeletal: generalized weakness, left sided weakness - Psychiatric Flat affect, not very communicative during interaction, although responds appropriately when prompted Psychiatric: A&O x's 3 Results CBC & Chem 7: 05/16/18 08:21 05/16/18 08:21 Labs: Abnormal Lab Results - Last 24 Hours (Table) 05/16/18 05/16/18 Range/Units 08:21 08:21 Plt Count 73 L (150-450) k/uL Sodium 132 L (137-145) mmol/L Chloride 96 L (98-107) mmol/L Glucose 139 H (74-99) mg/dL Microbiology - Last 24 Hours (Table) 05/14/18 19:20 Urine Culture - Preliminary Urine,Catheterized Gram Neg Bacilli 05/14/18 18:26 Blood Culture Gram Stain - Preliminary Blood Blood Culture - Preliminary Gram Neg Bacilli Comments: Blood Cultures 1 of 2 Positive Gram Negative Bacilli Urine Culture Positive Gram Negative Bacilli Assessment and Plan Plan: Assessment and Recommendations: 1. New Diagnosis of Non-Small Cell Lung Cancer with Metastatic Disease to the Brain - Obtain Records from recent [facility] Stay, Copy of Malignancy Pathology, more recs when obtained - Status Post One Treatment of Whole Brain Radiation on 05/14/18 - Recent MRI Brain showed vasogenic edema, the patient was on Dexamethasone as an outpatient to decrease the swelling in the brain, I spoke with Dr. Corbin from radiation Oncology and we will re-intiate steroids for this reason. Understanding there is an active infection, which is being treated the benefit of the anti-inflammatory effects of the dexamethasone outweighs the risks. 2. Urosepsis - UTI and Bacteremia (?Contaminate) Positive Urine Culture - IV Antibiotics. Cefepime - Fevers Improving - Repeat Cultures Pending 3. 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 Thrombocytopenia - Infection, antibiotics versus other - Need to consider, although less likely with time frame of antibody production the possibility of a heparin induced thrombocytopenia. Unclear if prophylaxis was used at outpatient facility - Will follow CBC and monitor for risks of bleeding. Transfusion needed if platelets drop less than 10, or less than 50 in presence of bleeding. Thank You for allowing us to participate in the care of this patient, we will follow along with you Physician Attestation: I have completed the full history and physical of this patient and agree with above dictation by Shaniqua Lowery NP. Dictated as a scribe
[2018-05-16] MEDS: TAMSULOSIN 0.4 MG CAP.ER.24H PO SCH (20:21)
[2018-05-16] MEDS: SENNOSIDES-DOCUSATE SODIUM 1 EACH TAB PO SCH (20:23)
[2018-05-16] MEDS: DEXAMETHASONE 4 MG TAB PO SCH (21:38)
[2018-05-17 06:13] VITALS: RESP 16
[2018-05-17] MEDS: PANTOPRAZOLE 40 MG TABLET PO SCH (08:35)
[2018-05-17] MEDS: NICOTINE 14MG/24HR PATCH TRANSDERM SCH (08:35)
[2018-05-17] MEDS: CEFEPIME 2 GM in SODIUM CHLORIDE 0.9% 50 ML IVPB SCH ×2 (08:35→20:24)
[2018-05-17] MEDS: DEXAMETHASONE 4 MG TAB PO SCH ×3 (08:35→21:59)
[2018-05-17] MEDS: SENNOSIDES-DOCUSATE SODIUM 1 EACH TAB PO SCH ×2 (08:44→20:27)
[2018-05-17] MEDS: SODIUM CHLORIDE 0.9% 1,000 ML IV SCH ×2 (08:44→20:25)
[2018-05-17] MEDS ORDERED: amLODIPine 5 MG TAB PO SCH (09:00)
--- NOTE | 2018-05-17 14:59 | PN ---
PROGRESS NOTE DATE OF SERVICE: 05/09/2018 This 72-year-old gentleman who was admitted with UTI with sepsis is growing E. coli from the cultures which are poly sensitive. The patient is on cefepime at this time. No chest pain. No palpitations. No fever. PHYSICAL EXAM: Alert and oriented x2. Pulse is 76, blood pressure 116/83, respirations 16, temperature 97.2, pulse ox 98% on room air. HEENT: Conjunctivae normal. Oral mucosa moist. NECK: No jugular venous distention. No carotid bruit. No lymph node enlargement. CARDIOVASCULAR: S1, S2. RESPIRATORY: Breath sounds diminished in the bases. A few rhonchi, no crackles. ABDOMEN: Soft, nontender. No mass palpable. LEGS: No edema. NERVOUS SYSTEM: No focal deficits. LABS: At this time show UA noted, otherwise platelets 70. Sodium 132, other labs are noted. ASSESSMENT: 1. Acute urinary tract infection with sepsis with E coli on IV antibiotics. 2. Hypertension. 3. History of lung cancer with brain metastasis, on radiation therapy. 4. Hyponatremia, possibly hypovolemic. 5. present on admission, possibly secondary to sepsis. 6. Thrombocytopenia. RECOMMENDATIONS AND DISCUSSION: I recommend to continue current management, symptomatic treatment, continue with antibiotics, otherwise monitor closely. Continue with radiation therapy. Guarded prognosis. foster care social worker, PT, OT evaluate the home situation. Possible ECF rehab. Further recommendations to follow. ALINA / PRAVIN: [id number] / MTDD
[2018-05-17] MEDS: TAMSULOSIN 0.4 MG CAP.ER.24H PO SCH (20:26)
[2018-05-18] MEDS: SODIUM CHLORIDE 0.9% 1,000 ML IV SCH ×2 (04:29→15:46)
[2018-05-18] MEDS: DEXAMETHASONE 4 MG TAB PO SCH ×3 (07:29→20:08)
[2018-05-18] MEDS: SENNOSIDES-DOCUSATE SODIUM 1 EACH TAB PO SCH ×2 (07:30→20:06)
[2018-05-18] MEDS: CEFEPIME 2 GM in SODIUM CHLORIDE 0.9% 50 ML IVPB SCH ×2 (07:30→20:07)
[2018-05-18] MEDS: NICOTINE 14MG/24HR PATCH TRANSDERM SCH (07:30)
[2018-05-18] MEDS: amLODIPine 10 MG TAB PO SCH (07:30)
[2018-05-18] MEDS: PANTOPRAZOLE 40 MG TABLET PO SCH (07:30)
--- NOTE | 2018-05-18 16:57 | PN ---
PROGRESS NOTE DATE OF SERVICE: 05/18/2018. This 72-year-old gentleman who was admitted with acute UTI with E coli. is on IV antibiotics. The patient also receiving radiation therapy. PT, OT evaluation. ECF rehab is a possibility. No chest pain. No palpitations. No fever. EXAM: Alert and oriented x3. Pulse 66, blood pressure 140/70, respiration 16, temperature 97.1, pulse ox 97% on room air. HEENT: Conjunctivae normal. NECK: No jugular venous distention. CARDIOVASCULAR: S1, S2 muffled. RESPIRATORY: Breath sounds diminished in the bases. Scattered rhonchi and crackles. ABDOMEN: Soft, nontender. LEGS: No edema. NERVOUS SYSTEM: No focal deficits. LABS: At this time showed CBC within normal. Platelets 73. Sodium 132. ASSESSMENT: 1. Acute urinary tract infection with sepsis, present on admission, with Escherichia coli on IV antibiotics. 2. Hypertension. 3. History of lung cancer with brain metastasis on radiation therapy. 4. Hyponatremia, possibly hypovolemic. 5. Thrombocytopenia. 6. Gait dysfunction. RECOMMENDATIONS AND DISCUSSION: I recommend to continue current management and symptomatic treatment. Repeat labs. PT, OT evaluation, possible ECF rehab. Continue with antibiotics. Follow closely with Radiation-Oncology. Further recommendations to follow. MMODL / IJN: [id number] /
[2018-05-18] MEDS: TAMSULOSIN 0.4 MG CAP.ER.24H PO SCH (20:08)
[2018-05-19] MEDS: SODIUM CHLORIDE 0.9% 1,000 ML IV SCH ×2 (04:13→13:13)
[2018-05-19] MEDS: DEXAMETHASONE 4 MG TAB PO SCH ×3 (08:43→22:51)
[2018-05-19] MEDS: CEFEPIME 2 GM in SODIUM CHLORIDE 0.9% 50 ML IVPB SCH ×2 (08:43→22:49)
[2018-05-19] MEDS: PANTOPRAZOLE 40 MG TABLET PO SCH (08:43)
[2018-05-19] MEDS: amLODIPine 10 MG TAB PO SCH (08:43)
[2018-05-19] MEDS: NICOTINE 14MG/24HR PATCH TRANSDERM SCH (08:43)
[2018-05-19] MEDS: SENNOSIDES-DOCUSATE SODIUM 1 EACH TAB PO SCH ×2 (09:31→22:51)
--- NOTE | 2018-05-19 15:31 | PN ---
PROGRESS NOTE DATE OF SERVICE: 05/19/2018 This 72-year-old gentleman who was admitted with UTI also had E coli grown from the culture. The patient also receiving radiation therapy. Patient also being [facility]. No chest pain. No palpitations. No fever. Mildly confused. PHYSICAL EXAM: Alert and oriented x3. Pulse is 80, blood pressure 150/88, respirations 16, temperature 98.2, pulse ox 97% on room air. HEENT: Conjunctivae normal. Oral mucosa moist. NECK: No jugular venous distention. No carotid bruit. No lymph node enlargement. CARDIOVASCULAR: S1, S2 muffled. RESPIRATORY: Breath sounds diminished in the bases. No rhonchi, no crackles. ABDOMEN: Soft, nontender. LEGS: No edema. NERVOUS SYSTEM: Diffusely weak. LAB: Platelets 73, otherwise plasma lactic acid 1.8. ASSESSMENT: 1. Acute urinary tract infection with sepsis, present on admission, with E coli on IV antibiotic. 2. Hypertension. 3. History of lung cancer with brain metastasis on radiation therapy. 4. Hyponatremia, possibly hypovolemic. 5. Thrombocytopenia. 6. Gait dysfunction. RECOMMENDATIONS AND DISCUSSION: I recommend to continue current management and symptomatic treatment. Continue with PT, OT evaluation, possible ECF rehab. Continue the rest of medications. Further recommendations to follow. MMODL / IJN: [id number] /
[2018-05-19] MEDS: TAMSULOSIN 0.4 MG CAP.ER.24H PO SCH (22:51)
[2018-05-20] MEDS: PANTOPRAZOLE 40 MG TABLET PO SCH (08:28)
[2018-05-20] MEDS: amLODIPine 10 MG TAB PO SCH (08:28)
[2018-05-20] MEDS: NICOTINE 14MG/24HR PATCH TRANSDERM SCH (08:28)
[2018-05-20] MEDS: SENNOSIDES-DOCUSATE SODIUM 1 EACH TAB PO SCH ×2 (08:28→21:36)
[2018-05-20] MEDS: DEXAMETHASONE 4 MG TAB PO SCH ×3 (08:28→21:36)
[2018-05-20] MEDS: CEFEPIME 2 GM in SODIUM CHLORIDE 0.9% 50 ML IVPB SCH (08:41)
[2018-05-20] MEDS: cefTRIAXone IN SWFI 1,000 MG/10 ML SYRINGE IVP SCH (10:39)
--- NOTE | 2018-05-20 14:41 | PN ---
PROGRESS NOTE DATE OF SERVICE: 05/20/2018. INTERVAL HISTORY: This 72-year-old gentleman admitted with UTI also had E coli grown from the culture. The patient also receiving radiation therapy for lung cancer with brain metastases. The PT, OT evaluated the patient for possible ECF rehab at this time. No chest pain. No palpitations. No fever. The patient is [facility]. EXAM: Alert and oriented x2. Pulse 59, blood pressure 140/70, respirations 16, temperature 98 degrees, pulse ox 100% on room air. HEENT: Conjunctivae normal. NECK: No jugular venous distention. CARDIOVASCULAR: S1, S2. RESPIRATORY: Breath sounds diminished in the bases. A few scattered rhonchi. No crackles. ABDOMEN: Soft. NERVOUS SYSTEM: Diffusely weak. LABS: Platelets 73. ASSESSMENT: 1. Acute urinary tract infection with E coli with sepsis present on admission on IV antibiotics. 2. Hypertension. 3. History of lung cancer with brain metastases on radiation therapy. 4. Hyponatremia, possibly hypovolemic. 5. Gait dysfunction. 6. Thrombocytopenia. RECOMMENDATIONS AND DISCUSSION: I recommend to continue current management and symptomatic treatment. Otherwise at this time I recommend antibiotics, PT, OT evaluation. wellness spa manager and social science research assistant to work with the [facility] for possible ECF rehab. Prognosis guarded. Further recommendations to follow. MMODL / IJN: [id number] /
--- NOTE | 2018-05-20 15:54 | P.PN ---
Subjective Progress Note Date: 05/20/18 Principal diagnosis: New Lung Cancer with Brain Mets No acute complaints, he has not been able to get out of bed by himself, He denies N/V/D/ Objective - Vital Signs Vital signs: Vital Signs Temp 97.4 F L 05/20/18 14:01 Pulse 89 05/20/18 14:01 Resp 16 05/20/18 14:01 BP 131/76 05/20/18 14:01 Pulse Ox 98 05/20/18 14:01 Intake & Output 05/19/18 05/20/18 05/20/18 18:59 06:59 18:59 Intake Total 500 1840 Output Total 2 Balance 498 1840 Weight 108.862 kg Intake: Intake, IV Titration 850 Amount Cefepime 2 gm In Sodium 50 Chloride 0.9% 50 ml @ 100 mls/hr IVPB Q12HR [facility] Rx #:[id number] Sodium Chloride 0.9% 1, 800 000 ml @ 100 mls/hr IV . Q10H [facility] Rx#:[id number] Oral 500 990 Output: Stool 2 Other: Voiding Method Urinal Urinal Urinal Diaper Diaper Diaper Incontinent Incontinent Incontinent # Voids 5 2 1 # Bowel Movements 1 - Constitutional General appearance: Present: cooperative, no acute distress - EENT Eyes: Present: EOMI, PERRLA, dentition normal ENT: Present: hard of hearing, NA/AT, normal oropharynx - Neck Details: Supple, Trachea midline - Respiratory Respiratory: bilateral: diminished (bibasilar, no increased effort) - Cardiovascular Rhythm: regular Heart sounds: normal: S1, S2 - Gastrointestinal General gastrointestinal: Present: normal bowel sounds, soft, tenderness - Integumentary Integumentary: Present: pale - Neurologic Neurologic Comment(s): No focal defects, still poor historian - Musculoskeletal Musculoskeletal: Present: generalized weakness, strength equal bilaterally - Psychiatric Psychiatric Comment(s): poor judgement and historian Psychiatric: Present: A&O x's 3 - Additional findings Additional findings: Overall very weak - Labs CBC & Chem 7: 05/16/18 08:21 05/16/18 08:21 Labs: Microbiology - Last 24 Hours (Table) 05/15/18 11:19 Blood Culture - Preliminary Blood No Growth after 120 hours 07/27/18 08:21 Blood Culture - Preliminary Blood No Growth after 96 hours Assessment and Plan Plan: Assessment and Recommendations: 1. 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 Corbin from radiation Oncology and we will re-intiate steroids for this reason. Understanding there is an active infection, which is being treated the benefit of the anti-inflammatory effects of the dexamethasone outweighs the risks. 2. Urosepsis - UTI and Bacteremia (?Contaminate) Positive Urine Culture - IV Antibiotics. Cefepime - Fevers Improving - Overall Improved and Stable 3. 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 Thrombocytopenia - Infection, antibiotics versus other - Need to consider, although less likely with time frame of antibody production the possibility of a heparin induced thrombocytopenia. Unclear if prophylaxis was used at outpatient facility - Will follow CBC and monitor for risks of bleeding. Transfusion needed if platelets drop less than 10, or less than 50 in presence of bleeding. 5. DISPO - Plan for K[facility] and follow-up with Oncology after patientsw performance status improves. Keep on Decadron and PPI at discharge and to be tapered by Radiation Onc Thank You for allowing us to participate in the care of this patient, we will follow along with you
[2018-05-20] MEDS: TAMSULOSIN 0.4 MG CAP.ER.24H PO SCH (21:36)
[2018-05-20] MEDS: SODIUM CHLORIDE 0.9% 1,000 ML IV SCH ×2 (21:51→22:06)
[2018-05-21] MEDS: SODIUM CHLORIDE 0.9% 1,000 ML IV SCH ×3 (04:38→21:26)
[2018-05-21 08:05] LABS: HCT 41.7 % (39.0-53.0); HGB 14.1 gm/dL (13.0-17.5); MCH 31.1 pg (25.0-35.0); MCHC 33.8 g/dL (31.0-37.0); Mean Platelet Volume 6.8; RBC 4.53 m/uL (4.30-5.90); RDW 13.1 % (11.5-15.5); WBC 8.9 k/uL (3.8-10.6)
[2018-05-21 08:06] LABS: Platelet Count 185 k/uL (150-450)
[2018-05-21 08:56] LABS: Band Neutrophils % 5 %; Blast Cells # (M) 0.09 k/uL (0); Lymphocytes # (M) 2.49 k/uL (1.0-4.8); Monocytes # (M) 0.62 k/uL (0-1.0); Myelocytes # (M) 0.18 k/uL (0); Myelocytes % 2 %; Neutrophils % (M) 59 %; Nucleated Red Blood Cells 0 /100 WBC (0-0); Total Cells Counted 200
[2018-05-21 08:57] LABS: Anisocytosis (M) Present; Poikilocytosis (M) Present; Toxic Vacuolation Present
[2018-05-21] MEDS: NICOTINE 14MG/24HR PATCH TRANSDERM SCH (09:08)
[2018-05-21] MEDS: SENNOSIDES-DOCUSATE SODIUM 1 EACH TAB PO SCH ×2 (09:10→21:25)
[2018-05-21] MEDS: amLODIPine 10 MG TAB PO SCH (09:10)
[2018-05-21] MEDS: PANTOPRAZOLE 40 MG TABLET PO SCH (09:10)
[2018-05-21] MEDS: DEXAMETHASONE 4 MG TAB PO SCH ×2 (09:10→21:15)
[2018-05-21] MEDS: cefTRIAXone IN SWFI 1,000 MG/10 ML SYRINGE IVP SCH (09:10)
--- NOTE | 2018-05-21 14:12 | P.PN ---
Subjective Progress Note Date: 05/21/18 Principal diagnosis: New Lung Cancer with Brain Mets No acute complaints, he is still very weak, inappropriate in responses at times , He denies N/V/D/ Objective - Vital Signs Vital signs: Vital Signs Temp 97.7 F 05/21/18 05:00 Pulse 58 L 05/21/18 08:00 Resp 16 05/21/18 08:00 BP 150/86 05/21/18 05:00 Pulse Ox 100 05/21/18 05:00 Intake & Output 05/20/18 05/21/18 05/21/18 18:59 06:59 18:59 Intake Total 980 Balance 980 Intake: Intake, IV Titration 800 Amount Sodium Chloride 0.9% 1, 800 000 ml @ 100 mls/hr IV . Q10H [facility] Rx#:[id number] Oral 180 Other: Voiding Method Diaper Diaper Diaper Incontinent Incontinent Incontinent # Voids 1 1 # Bowel Movements 1 - Constitutional General appearance: Present: cooperative, no acute distress - EENT Eyes: Present: EOMI, dentition normal ENT: Present: hard of hearing, NA/AT, normal oropharynx - Neck Details: supple, trachea midline Neck: Present: normal ROM - Respiratory Respiratory: bilateral: diminished (lower lobes, no increased effort), wheezing (scattered expiratory, ) - Cardiovascular Rhythm: regular Heart sounds: normal: S1, S2 - Peripheral edema leg Peripheral Edema: bilateral: Trace - Gastrointestinal General gastrointestinal: Present: normal bowel sounds, soft - Integumentary Integumentary: Present: normal - Neurologic Neurologic: Present: CNII-XII intact - Musculoskeletal Musculoskeletal: Present: generalized weakness - Psychiatric Psychiatric Comment(s): inapproprate at times, poor historian, alert to person and place - Labs CBC & Chem 7: 05/21/18 07:13 05/16/18 08:21 Labs: Abnormal Lab Results - Last 24 Hours (Table) 05/21/18 Range/Units 07:13 Myelocytes # (Manual) 0.18 H (0) k/uL Blast Cells # (Man) 0.09 H (0) k/uL Microbiology - Last 24 Hours (Table) 05/15/18 11:19 Blood Culture - Final Blood No Growth after 144 hours 05/16/18 08:21 Blood Culture - Preliminary Blood No Growth after 120 hours Assessment and Plan Plan: Assessment and Recommendations: 1. 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 Corbin from radiation Oncology today and we will decrease steroids to BID, he will follow-up with Dr. Corbin in office next week and he will see if he can continue to taper at that time - Will need to follow-up with Medical Oncology, Dr. Guo, after Discharge from ECF for options of systemic treatment. Currently not a candidate with concurrent radiation to brain and current performance status, will need to work with Rehab and increase performance status to be a candidate for systemic treatment. We will make appointment for 7-10 days (longer if in ECF longer) to re-evaluate patient at that time. 2. Urosepsis - UTI and Bacteremia (?Contaminate) Positive Urine Culture - Improved - IV Antibiotics. Cefepime - Fevers Improving - Overall Improved and Stable 3. 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 Thrombocytopenia - Infection, antibiotics versus other. Resolved - Need to consider, although less likely with time frame of antibody production the possibility of a heparin induced thrombocytopenia. Unclear if prophylaxis was used at outpatient facility - Will follow CBC and monitor for risks of bleeding. Transfusion needed if platelets drop less than 10, or less than 50 in presence of bleeding. 5. DISPO - Plan for K[facility]AV and follow-up with Oncology after patientsw performance status improves. Keep on Decadron at 4mg bid and PPI at discharge and to be tapered by Radiation Onc Thank You for allowing us to participate in the care of this patient, we will follow along with you
--- NOTE | 2018-05-21 17:42 | P.PN ---
Subjective Progress Note Date: 05/21/18 Progress note being dictated for Dr. Ribeiro Interval history:72-year-old male patient presents to the emergency department today for increased weakness and difficulty with urination. The patient was recently diagnosed with brain and lung cancer, started radiation treatment yesterday. Patient has been lethargic more week and patient is comparing of dysuria as well. States that he was having difficulty urinating today. Patient is a poor historian but able to provide me appropriate history patient denied any cough runny nose. Patient is comparing of dysuria. Patient blood cultures came back positive for gram-negative bacilli repeat urine cultures today and tomorrow will be obtained. Patient is significant abnormal patient possible source of infection is urinary tract infection. Patient has history of lung cancer with metastatic disease to brain and undergoes radiation therapy. Review of Systems REVIEW OF SYSTEMS: CONSTITUTIONAL: No fever, no malaise, no fatigue. HEENT: No recent visual problems or hearing problems. Denied any sore throat. CARDIOVASCULAR: No chest pain, orthopnea, PND, no palpitations, no syncope. PULMONARY: No shortness of breath, no cough, no hemoptysis. GASTROINTESTINAL: No diarrhea, no nausea, no vomiting, no abdominal pain. Normoactive bowel sounds. NEUROLOGICAL: No headaches, no weakness, no numbness. HEMATOLOGICAL: Denies any bleeding or petechiae. GENITOURINARY: As mentioned in HPI MUSCULOSKELETAL/RHEUMATOLOGICAL: Denies any joint pain, swelling, or any muscle pain. ENDOCRINE: Denies any polyuria or polydipsia. The rest of the 14-point review of systems is negative. 05/21/18 receiving radiation therapy for lung cancer and brain metastasis. Maintained on IV antibiotics for acute UTI with E. coli. Afebrile, repeat blood cultures negative. Denies chest pain, palpitations. Significant other discussing [facility] with [facility] social services currently. Objective - Vital Signs Vital signs: Vital Signs Temp 98.2 F 05/21/18 15:00 Pulse 71 05/21/18 16:00 Resp 16 05/21/18 16:00 BP 123/81 05/21/18 15:00 Pulse Ox 97 05/21/18 15:00 Intake & Output 05/20/18 05/21/18 05/21/18 18:59 06:59 18:59 Intake Total 980 700 Balance 980 700 Intake: Intake, IV Titration 800 700 Amount Sodium Chloride 0.9% 1, 800 700 000 ml @ 100 mls/hr IV . [facility]H [facility] Rx#:[id number] Oral 180 Other: Voiding Method Diaper Diaper Diaper Incontinent Incontinent Incontinent # Voids 1 1 3 # Bowel Movements 1 1 - Exam GENERAL: The patient is alert and oriented X 2,tired and lethargic. HEENT: Pupils are round , conjunctiva normal. No JVD CARDIOVASCULAR: S1 and S2 present. No murmurs, rubs, or gallops. PULMONARY: Chest is clear to auscultation, no wheezing or crackles. Occasional scattered rhonchi ABDOMEN: Soft, nontender, nondistended, normoactive bowel sounds. No palpable organomegaly. MUSCULOSKELETAL: No joint swelling or deformity. EXTREMITIES: No cyanosis, clubbing, or pedal edema. NEUROLOGICAL: Gross neurological examination did not reveal any new focal deficits. Diffusely weak. - Labs CBC & Chem 7: 05/21/18 07:13 05/16/18 08:21 Labs: Abnormal Lab Results - Last 24 Hours (Table) 05/21/18 Range/Units 07:13 Myelocytes # (Manual) 0.18 H (0) k/uL Blast Cells # (Man) 0.09 H (0) k/uL Microbiology - Last 24 Hours (Table) 05/15/18 11:19 Blood Culture - Final Blood No Growth after 144 hours 05/16/18 08:21 Blood Culture - Preliminary Blood No Growth after 120 hours Assessment and Plan Assessment: -Sepsis and bacteremia secondary to acute urinary tract infection with E. coli -Hypertension -Lung cancer with brain metastases undergoing radiation -Hyponatremia hypotonic hyponatremia probably secondary to sepsis Plan: Continue on current medication regime ,monitoring and symptomatic treatment. Significant other unable to manage patient at home, requesting [facility] informational visit, interested in [facility]. Maintain supportive care. Diagnosis remains guarded given multiple complex medical problems. Discharge planning in progress for tomorrow. The impression and plan of care has been dictated as directed. : I performed a history and examination of this patient, discussed the same with the dictator. I agree with the dictator's note ,documented as a scribe. Any additional findings or plans will be noted.
[2018-05-21] MEDS: TAMSULOSIN 0.4 MG CAP.ER.24H PO SCH (21:15)
[2018-05-22 06:16] VITALS: BP 145/64; PULSE 63; TEMP 96.6
[2018-05-22] MEDS: amLODIPine 10 MG TAB PO SCH (08:36)
[2018-05-22] MEDS: NICOTINE 14MG/24HR PATCH TRANSDERM SCH (08:36)
[2018-05-22] MEDS: DEXAMETHASONE 4 MG TAB PO SCH (08:36)
[2018-05-22] MEDS: PANTOPRAZOLE 40 MG TABLET PO SCH (08:36)
[2018-05-22] MEDS: cefTRIAXone IN SWFI 1,000 MG/10 ML SYRINGE IVP SCH (08:39)
[2018-05-22] MEDS: SENNOSIDES-DOCUSATE SODIUM 1 EACH TAB PO SCH (08:39)
[2018-05-22] MEDS: SODIUM CHLORIDE 0.9% 1,000 ML IV SCH (08:40)
[2018-05-22 08:52] LABS: ALT 37 U/L (21-72); AST 41 U/L (17-59); Albumin 3.1 g/dL (3.5-5.0); Alkaline Phosphatase 45 U/L (38-126); Anion Gap 11 mmol/L; Blood Urea Nitrogen 19 mg/dL (9-20); Calcium 8.6 mg/dL (8.4-10.2); Carbon Dioxide 21 mmol/L (22-30); Chloride 102 mmol/L (98-107); Glucose 106 mg/dL (74-99); Sodium 134 mmol/L (137-145); Total Protein 5.8 g/dL (6.3-8.2)
[2018-05-22 08:54] LABS: Potassium 5.3 mmol/L (3.5-5.1)
--- NOTE | 2018-05-22 12:45 | P.DS ---
Providers Date of admission: 05/14/18 20:50 Expected date of discharge: 05/22/18 Attending physician: Bennett Ribeiro Final Diagnoses: Sepsis and bacteremia secondary to acute urinary tract infection with E. coli -Hypertension -Lung cancer with brain metastases undergoing radiation -Hyponatremia hypotonic hyponatremia probably secondary to sepsis -No COde, NO CPR, NO INTUBATION -HOSPICE Hospital COurse:72-year-old male patient presents to the emergency department today for increased weakness and difficulty with urination. The patient was recently diagnosed with brain and lung cancer, started radiation treatment yesterday. Patient has been lethargic more week and patient is comparing of dysuria as well. States that he was having difficulty urinating today. Patient is a poor historian but able to provide me appropriate history patient denied any cough runny nose. Patient is comparing of dysuria. Patient blood cultures came back positive for gram-negative bacilli repeat urine cultures today and tomorrow will be obtained. Patient is significant abnormal patient possible source of infection is urinary tract infection. Patient has history of lung cancer with metastatic disease to brain and undergoes radiation therapy. Maintained on IV antibiotics for acute UTI with E. coli. Repeat blood cultures negative. Significant other, met with [facility].Patient has been changed to No COde, NO CPR, NO INTUBATION, Hospice. Patient will be discharged to [facility] in a stable condition with poor prognosis. Exam GENERAL: The patient is alert and oriented X 2,tired and lethargic. CARDIOVASCULAR: S1 and S2 present. No murmurs, rubs, or gallops. PULMONARY: Chest is clear to auscultation, no wheezing or crackles. Occasional scattered rhonchi ABDOMEN: Soft, nontender, nondistended, normoactive bowel sounds. No palpable organomegaly. NEUROLOGICAL: Gross neurological examination did not reveal any new focal deficits. Diffusely weak. The impression and plan of care has been dictated as directed. : I performed a history and examination of this patient, discussed the same with the dictator. I agree with the dictator's note ,documented as a scribe. Any additional findings or plans will be noted. TIme Taken: 35 min. Consults: 05/14/18 20:35 Consult Physician Routine Consulting Provider: Paulo Corbin Consult Reason/Comments: Fever; Radiation tx Do you want consulting provider notified?: Yes 07/27/18 07:34 Consult Physician Routine Consulting Provider: Tera Guo Consult Reason/Comments: metastatic lung ca - re eval - patient known to you Do you want consulting provider notified?: Yes Primary care physician: [facility] Patient Condition at Discharge: Serious Plan - Discharge Summary New Discharge Prescriptions: New Nicotine 14Mg/24Hr Patch [Habitrol] 1 patch TRANSDERM DAILY #30 patch LORazepam [Ativan] 0.5 mg PO Q8H PRN #9 tab PRN Reason: Anxiety Ciprofloxacin HCl [Cipro] 500 mg PO Q12HR #12 tablet Acetaminophen Tab [Tylenol] 650 mg PO Q6HR PRN tab PRN Reason: Mild Pain Or Fever > 100.5 Dexamethasone [Hexadrol] 4 mg PO BID tab Tamsulosin [Flomax] 0.4 mg PO HS #30 cap.er.24h Continue Sennosides/Docusate Sodium [Kiki Colace] 1 tab PO BID Omeprazole [PriLOSEC] 20 mg PO DAILY #30 capsule. Changed amLODIPine [Norvasc] 10 mg PO DAILY #60 HYDROcodone/APAP 10-325MG [[place] 10-325] 1 tab PO Q8H #9 tab Discontinued Tamsulosin HCl [Flomax] 0.4 mg PO HS Discharge Medication List Sennosides/Docusate Sodium [Kiki Colace] 1 tab PO BID 03/07/17 [History] Acetaminophen Tab [Tylenol] 650 mg PO Q6HR PRN tab 05/22/18 [Rx] Ciprofloxacin HCl [Cipro] 500 mg PO Q12HR #12 tablet 05/22/18 [Rx] Dexamethasone [Hexadrol] 4 mg PO BID tab 05/22/18 [Rx] HYDROcodone/APAP 10-325MG [[place] 10-325] 1 tab PO Q8H #9 tab 05/22/18 [Rx] LORazepam [Ativan] 0.5 mg PO Q8H PRN #9 tab 05/22/18 [Rx] Nicotine 14Mg/24Hr Patch [Habitrol] 1 patch TRANSDERM DAILY #30 patch 05/22/18 [ Rx] Omeprazole [PriLOSEC] 20 mg PO DAILY #30 capsule. 05/22/18 [Rx] Tamsulosin [Flomax] 0.4 mg PO HS #30 cap.er.24h 05/22/18 [Rx] amLODIPine [Norvasc] 10 mg PO DAILY #60 05/22/18 [Rx] Follow up Appointment(s)/Referral(s): Jose J Brock DO [Doctor of Osteopathic Medicine] - As Needed Activity/Diet/Wound Care/Special Instructions: [facility] Decadron taper as per ONC/ONC Rad. Discharge Disposition: DISCH TO HOSPICE MED FACILTY
--- NOTE | 2018-05-22 12:55 | P.PN ---
Subjective Progress Note Date: 05/22/18 Principal diagnosis: New Lung Cancer with Brain Mets No acute complaints, he is more alert today. Spoke to nursing and plan is for patient to go [facility] today Objective - Vital Signs Vital signs: Vital Signs Temp 96.6 F L 05/22/18 05:00 Pulse 63 05/22/18 05:00 Resp 16 05/22/18 05:00 BP 145/64 05/22/18 05:00 Pulse Ox 98 05/22/18 05:00 Intake & Output 05/21/18 05/22/18 05/22/18 18:59 06:59 18:59 Intake Total 700 1790 Balance 700 1790 Weight 108.862 kg Intake: Intake, IV Titration 700 1200 Amount Sodium Chloride 0.9% 1, 700 1200 000 ml @ 100 mls/hr IV . Q10H [facility] Rx#:[id number] Oral 590 Other: Voiding Method Diaper Diaper Diaper Incontinent Incontinent Incontinent # Voids 3 3 # Bowel Movements 1 - Constitutional General appearance: Present: cooperative, no acute distress - EENT Eyes: Present: EOMI, dentition normal ENT: Present: NA/AT, normal oropharynx - Neck Details: supple, trachea midline Neck: Present: normal ROM - Respiratory Respiratory: bilateral: CTA (no increased effort) - Cardiovascular Rhythm: regular Heart sounds: normal: S1, S2 - Gastrointestinal General gastrointestinal: Present: normal bowel sounds, soft - Integumentary Integumentary: Present: normal - Neurologic Neurologic: Present: CNII-XII intact - Musculoskeletal Musculoskeletal: Present: generalized weakness - Psychiatric Psychiatric Comment(s): Alert to person and place - Labs CBC & Chem 7: 05/21/18 07:13 05/22/18 07:26 Labs: Abnormal Lab Results - Last 24 Hours (Table) 05/22/18 Range/Units 07:26 Sodium 134 L (137-145) mmol/L Potassium 5.3 H (3.5-5.1) mmol/L Carbon Dioxide 21 L (22-30) mmol/L Glucose 106 H (74-99) mg/dL Total Protein 5.8 L (6.3-8.2) g/dL Albumin 3.1 L (3.5-5.0) g/dL Microbiology - Last 24 Hours (Table) 05/16/18 08:21 Blood Culture - Final Blood No Growth after 144 hours 05/15/18 11:19 Blood Culture - Final Blood No Growth after 144 hours Assessment and Plan Plan: Assessment and Recommendations: 1. 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 Corbin from radiation Oncology today and we will decrease steroids to BID, he was going to follow-up with Dr. Corbin in office next week although since patient and family have chosen to go home with hospice care he be discharged on the dose of dexamethasone per Dr. Corbin Radiation oncology - Hospice is resonable especially with current performance and known metastatic disease. 2. Urosepsis - UTI and Bacteremia (?Contaminate) Positive Urine Culture - Improved - IV Antibiotics. Cefepime - Fevers Improving - Overall Improved and Stable 3. 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 Thrombocytopenia - Infection, antibiotics versus other. Resolved - Need to consider, although less likely with time frame of antibody production the possibility of a heparin induced thrombocytopenia. Unclear if prophylaxis was used at outpatient facility - Will follow CBC and monitor for risks of bleeding. Transfusion needed if platelets drop less than 10, or less than 50 in presence of bleeding. 5. DISPO - Plan for Hospice at discharge per primary team. Radiation oncology to continue to manage dexamethasone. Thank You for allowing us to participate in the care of this patient, we will follow along with you
== END 2018-05-22 15:50 | disposition hospice, inpatient (51) | DRG 871 ==
LOC: EC 17:38 → 5ONC 20:50
PROVIDERS: ADMIT Hospitalist; ATTEND Hospitalist
DX: A41.51 Sepsis due to Escherichia coli [E. coli] (principal); G93.6 Cerebral edema; E87.2 Acidosis; C79.31 Secondary malignant neoplasm of brain; N39.0 Urinary tract infection, site not specified; C34.90 Malignant neoplasm of unspecified part of unspecified bronchus or lung; G81.94 Hemiplegia, unspecified affecting left nondominant side; E87.1 Hypo-osmolality and hyponatremia; D69.6 Thrombocytopenia, unspecified; Z66 Do not resuscitate; Z51.5 Encounter for palliative care; R65.20 Severe sepsis without septic shock; I10 Essential (primary) hypertension; M54.2 Cervicalgia; M54.9 Dorsalgia, unspecified; R32 Unspecified urinary incontinence; R59.9 Enlarged lymph nodes, unspecified; R26.9 Unspecified abnormalities of gait and mobility; F17.210 Nicotine dependence, cigarettes, uncomplicated; F14.21 Cocaine dependence, in remission; F11.11 Opioid abuse, in remission; Z79.891 Long term (current) use of opiate analgesic; Z79.899 Other long term (current) drug therapy
CPT/HCPCS: 36415; 71046; 77295; 77300; 77334; 77336; 77412; 80048; 80053; 81001; 82550; 82553; 83605; 84484; 85025; 85027; 85610; 85730; 87040; 87077; 87086; 87186; 93005; 94760; 96360; 96361; 99285